=== PATIENT | male | born 1935 | race Caucasian/White ===

== ENCOUNTER 2019-01-30 16:10 | Emergency (ER) | payer MEDICARE, OTHER ==
[2019-01-30] MEDS ORDERED: Ketamine 50 MG/ML (10ML VIAL) ONE (16:29)
[2019-01-30] MEDS ORDERED: PROPOFOL 20 ML ONE (16:37)
--- NOTE | 2019-01-30 16:54 | RAD ---
2 views left hip: 01/30/2019 COMPARISON: None HISTORY: Fall, trauma, pain FINDINGS: There is a total hip arthroplasty present on the left. The femoral component is dislocated anteriorly and proximally. Post reduction imaging advised. IMPRESSION: Dislocated left hip arthroplasty.
--- NOTE | 2019-01-30 16:55 | RAD ---
Frontal radiograph pelvis: 01/30/2019 COMPARISON: None HISTORY: Injury, trauma, pain FINDINGS: There is a dislocated left hip arthroplasty present. There is no widening of the sacroiliac joints or pubic symphysis. No acute fracture noted. Multilevel lumbar spine degenerative change present. IMPRESSION: Dislocation of left hip arthroplasty.
--- NOTE | 2019-01-30 17:19 | RAD ---
2 views left hip: 01/30/2019 HISTORY: Evaluate reduction FINDINGS: Previously noted dislocation of left hip arthroplasty has been reduced. No acute fracture. IMPRESSION: Interval reduction of left hip arthroplasty.
== END 2019-01-30 20:20 | disposition home or self-care (01) ==
LOC: ERS 16:10
DX: S73.005A Unspecified dislocation of left hip, initial encounter (principal); I10 Essential (primary) hypertension; X50.1XXA Overexertion from prolonged static or awkward postures, initial encounter
CPT/HCPCS: 27250; 72170; 96360; 99152; J2704

== ENCOUNTER 2020-04-01 02:11 | Inpatient (IN) | payer MEDICARE, OTHER ==
[2020-04-01 02:47] LABS: #Lymphocytes 1.4 thou/uL (1.20-3.40); #Monocytes 0.7 thou/uL (0.11-0.59); %Basophils 0.3 % (0.0-1.0); %Eosinophils 0.1 % (0.0-10.0); %Lymphocytes 15.4 % (21.0-51.0); %Monocytes 7.6 % (0.0-10.0); %Neutrophils 76.6 % (42.0-75.0); Hemoglobin 17.5 g/dL (14.0-18.0); Mean Corpuscular HGB CONC 34.2 g/dL (32.0-36.0); Mean Corpuscular Hemoglobin 33.2 pg (27.0-31.0); Mean Corpuscular Volume 97.2 fL (78.0-98.0); Mean Platelet Volume 9.5 fL (7.4-10.4); Platelet Count 116 thou/uL (130-400); RBC Distribution Width 12.6 % (11.5-14.5); Red Blood Cell (RBC) Count 5.25 mill/uL (4.70-6.10); White Blood Cell (WBC) Count 9.2 thou/uL (4.8-10.8)
[2020-04-01] MEDS ORDERED: Acetaminophen 500 MG TAB ONE (02:48)
[2020-04-01] MEDS ORDERED: cefTRIAXone\\ROCEPHIN 2 GM VIAL ONE (02:48)
[2020-04-01 03:05] LABS: ALT (SGPT) 82 U/L (8-55); AST (SGOT) 270 U/L (5-34); Alkaline Phosphatase 74 U/L (40-110); Anion Gap 20 mmol/L (10-20); BUN (Urea Nitrogen) 41 mg/dL (8.4-25.7); Bilirubin, Total 1.8 mg/dL (0.2-1.2); Calc. Creatinine Clearance 0 mL/min (70-130); Calcium 9.3 mg/dL (7.8-10.44); Carbon Dioxide 24 mmol/L (23-31); Chloride 103 mmol/L (98-107); Estimated GFR-MDRD 47; Globulin 3.7 g/dL (2.4-3.5); Glucose 190 mg/dL (83-110); Potassium 3.5 mmol/L (3.5-5.1); Protein, Total 7.7 g/dL (5.8-8.1); Sodium 143 mmol/L (136-145)
[2020-04-01] MEDS ORDERED: Azithromycin 500 MG VIAL ONE (03:05)
[2020-04-01] MEDS ORDERED: Aspirin Chewable 81 MG TAB ONE (03:22)
[2020-04-01 03:33] LABS: CKMB 15.8 ng/mL (0-6.6)
[2020-04-01] MEDS ORDERED: Acetaminophen 325 MG TAB PO PRN (03:52)
[2020-04-01] MEDS ORDERED: Diabetic Tussin DM 5 ML UDCUP PO PRN (03:52)
[2020-04-01] MEDS ORDERED: Calcium Carbonate 500 MG ChewTAB PO PRN (03:52)
[2020-04-01] MEDS ORDERED: HYDROcodone/Acetaminophen 5/325 mg Tablet PO PRN (03:52)
[2020-04-01] MEDS ORDERED: Ondansetron PF 4 MG/2 ML Vial IVP PRN (03:52)
[2020-04-01] MEDS ORDERED: Ondansetron ODT 4 MG TAB PO PRN (03:52)
[2020-04-01] MEDS ORDERED: Acetaminophen 650 MG Suppository PR PRN (03:52)
[2020-04-01] MEDS ORDERED: Dextrose 5% in Water 1,000 ML IV PRN (04:00)
[2020-04-01] MEDS ORDERED: Dextrose 50% Abboject 50 ML SYRINGE SLOW IVP PRN (04:00)
--- NOTE | 2020-04-01 04:12 | PDOC.HHP ---
Hospitalist HPI - History of Present Illness altered mental status History of Present Illness: history is limited obtained from ed records and old emr. ED physicians did talked w son over the phone and got some of his pmhx, son will bring medication list Case of an 84y/o male with pmhx of atrial fibrillation on no anticoagulation due to hx of ICH, hypertension hyperlipidemia and DM who comes to hospital brought by ems after son found him disoriented at his house. apparently patient was on his usual state of health until today when his son called him and he did not answer. he was worried and went to check on him and found him naked in a chair with altered mental state looking dehydrated and tachypnic, son is an internal medicine physician. ems was called and patient was brought to the hospital. of noted ems had called earlier today on the patient after suffering a fall. at that time pt was aox3. at the ed patient was found in sepsis secondary to covid / pneumonia and hospitalist was called for further evaluation and management Hospitalist ROS - Review of Systems ROS unobtainable: due to mental status Hospitalist History - Past Medical History Cardiac: reports: AFIB, HTN, Hyperlipidemia Endocrine: reports: Diabetes - Past Surgical History Other Surgical History: unable to asses due to altered mental status - Family History Other Family History: unable to asses due to altered mental status - Exam General Appearance: awake alert, ill appearing Eye: PERRL, anicteric sclera ENT: normocephalic atraumatic, no oropharyngeal lesions Neck: supple, symmetric, no JVD Heart: no murmur, no gallops, no rubs Heart - other findings: tachycardic Respiratory: tachypneic Respiratory - other findings: decreased breath sound b/l Gastrointestinal: soft, non-tender, non-distended, normal bowel sounds Extremities: no cyanosis, no clubbing, no edema Extremities - other findings: b/l stasis dermatitis scars Skin: normal turgor, no rashes Neurological: cranial nerve grossly intact, normal sensation to touch, no weakness, no focal deficits Musculoskeletal: normal tone, normal strength, no muscle wasting Psychiatric: normal affect, normal behavior, oriented to person Hospitalist Results - Labs Result Diagrams: 04/01/20 02:35 04/01/20 02:35 Lab results: WBC 9.2 thou/uL (4.8-10.8) 04/01/20 02:35 Hgb 17.5 g/dL (14.0-18.0) 04/01/20 02:35 Hct 51.1 % (42.0-52.0) 04/01/20 02:35 MCV 97.2 fL (78.0-98.0) 04/01/20 02:35 Plt Count 116 thou/uL (130-400) L 04/01/20 02:35 Neutrophils % 76.6 % (42.0-75.0) H 04/01/20 02:35 Sodium 143 mmol/L (136-145) 04/01/20 02:35 Potassium 3.5 mmol/L (3.5-5.1) 04/01/20 02:35 Chloride 103 mmol/L (98-107) 04/01/20 02:35 Carbon Dioxide 24 mmol/L (23-31) 04/01/20 02:35 BUN 41 mg/dL (8.4-25.7) H 04/01/20 02:35 Creatinine 1.42 mg/dL (0.7-1.3) H 04/01/20 02:35 Glucose 190 mg/dL (83-110) H 04/01/20 02:35 Lactic Acid 3.2 mmol/L (0.5-2.2) H 04/01/20 02:35 Calcium 9.3 mg/dL (7.8-10.44) 04/01/20 02:35 Total Bilirubin 1.8 mg/dL (0.2-1.2) H 04/01/20 02:35 AST 270 U/L (5-34) H 04/01/20 02:35 ALT 82 U/L (8-55) H 04/01/20 02:35 Alkaline Phosphatase 74 U/L (40-110) 04/01/20 02:35 CK-MB (CK-2) 15.8 ng/mL (0-6.6) H* 04/01/20 02:35 Troponin I 0.345 ng/mL (< 0.028) H* 04/01/20 02:35 B-Natriuretic Peptide 152.6 pg/mL (0-100) H 04/01/20 02:35 Serum Total Protein 7.7 g/dL (5.8-8.1) 04/01/20 02:35 Albumin 4.0 g/dL (3.4-4.8) 04/01/20 02:35 - Radiology Interpretation Chest x-ray Additional Comment: b/l [place] Hospitalist H&P A/P - Problem (1) Severe sepsis Code(s): A41.9 - SEPSIS, UNSPECIFIED ORGANISM; R65.20 - SEVERE SEPSIS WITHOUT SEPTIC SHOCK Status: Acute (2) Pneumonia Code(s): J18.9 - PNEUMONIA, UNSPECIFIED ORGANISM Status: Acute (3) COVID-19 Code(s): U07.1 - COVID-19 Status: Acute (4) Diabetes Code(s): E11.9 - TYPE 2 DIABETES MELLITUS WITHOUT COMPLICATIONS Status: Acute (5) HTN (hypertension) Code(s): I10 - ESSENTIAL (PRIMARY) HYPERTENSION Status: Acute (6) Atrial fibrillation Code(s): I48.91 - UNSPECIFIED ATRIAL FIBRILLATION Status: Acute (7) Elevated troponin Code(s): R79.89 - OTHER SPECIFIED ABNORMAL FINDINGS OF BLOOD CHEMISTRY Status : Acute - Plan Plan: severe sepsis pneumonia / covid 19 - fever tachycardia with elevated LA with cxr with b/l pneumonia positive covid test, renal failure and elevated troponins - sepsis bundles started at the ED - f/u LA - cefe and vanc - dexamethasone 6mg iv daily - 02 supplementation - f/u blood cultures jamir - likely pre renal - on ivfs - f/u u/o and bmps htn - holding medication in setting of sepsis dm - ss and accu checks, adjust as necessary afib - chronic not in rvr - no AC due to hx of ICH
[2020-04-01] MEDS ORDERED: Cefepime 2 GM in Sodium Chloride 0.9% 100 ML IVPB SCH ×2 (04:15→06:00)
[2020-04-01 05:07] LABS: Bacteria/HPF None Seen HPF (None Seen); Bilirubin Negative (Negative); Blood, Urine 3+ (Negative); Clarity Turbid (Clear); Glucose, Urine (Dipstick) Normal (Negative); Ketone, Urine 10 mg/dL (Negative); Leukocyte Negative Leu/uL (Negative); Nitrite Negative (Negative); Protein, Urine (Dipstick) 300 mg/dL (Neg-Trace); Specific Gravity, Urine 1.043 (1.002-1.036); WBC/HPF 21-50 HPF (0-3)
[2020-04-01 05:48] LABS: Lactic Acid 1.6 mmol/L (0.5-2.2)
[2020-04-01 06:05] VITALS: BMI 27.3
[2020-04-01 06:07] LABS: Troponin I 0.394 ng/mL (< 0.028)
[2020-04-01] MEDS: Sodium Chloride 0.9% 1,000 ML IV SCH ×2 (06:29→12:56)
[2020-04-01] MEDS ORDERED: Prevnar 13-Val Conj/PF 0.5 ML SYRINGE IM ONE (08:00)
[2020-04-01] MEDS ORDERED: Enoxaparin Sodium 40 MG/0.4 ML SYRINGE SC SCH (09:00)
[2020-04-01] MEDS ORDERED: Vancomycin HCl 1 GM in Sodium Chloride 0.9% 250 ML 300 ML IVPB SCH (09:00)
[2020-04-01] MEDS ORDERED: Vancomycin 1 GM in Premix Bag 1 BAG IVPB SCH (09:00)
--- NOTE | 2020-04-01 09:01 | CT ---
PRELIMINARY REPORT/DIRECT RADIOLOGY/EMERGENCY AFTER HOURS PROCEDURE: EXAM: CT Chest with Intravenous Contrast. CLINICAL HISTORY: Patient brought to the ER by EMS at the request of his son. His son tried to call h im today and could not get him to answer the phone. When he went to his house he noted that the patie nt was short of breath. Patient son is a internal medicine physician, and he listened to his lungs an d heard wheezing which was unusual. He also reported to EMS that the patient is more confused than no rmal. Patient was seen by EMS earlier this evening following a mechanical fall at which time he was o riented x4 and did not want to come to the hospital. Patient was diagnosed with COVID-19 earlier this week. Patient complains only of low back pain which is chronic. He denies shortness of breath, howev er he seems bit confused. He says he fell a week ago, not today. TECHNIQUE: Axial computed tomography images of the chest with intravenous contrast. CONTRAST: With; ISOVUE 370,100mL COMPARISON: None provided. FINDINGS: LUNGS: Multifocal infiltrates predominantly bilateral lower lobes and right upper lobe is present con sistent with history of Covid 19. PLEURAL SPACES: Small bilateral pleural effusions. HEART AND MEDIASTINUM: Cardiomegaly. LYMPH NODES: No lymphadenopathy. BONES: Chronic appearing left proximal humeral fracture. Chronic left posterior 10th and 11th rib fra ctures. Acute appearing left anterior sixth rib fracture. CHEST WALL AND UPPER ABDOMEN: The upper abdominal solid organs are unremarkable. The chest wall is un remarkable. IMPRESSION: Multifocal infiltrates consistent with history of Covid 19. Small bilateral pleural effus ions. Acute nondisplaced left anterior sixth rib fracture. Cardiomegaly. ELECTRONICALLY SIGNED BY: Parris Page MD Apr 01, 2020 4:29:15 AM CDT FINAL REPORT EMERGENT AFTER HOURS CT CHEST WITH IV CONTRAST: IMPRESSION: Agree with the preliminary interpretation. POS: [place]
--- NOTE | 2020-04-01 09:09 | RAD ---
PORTABLE CHEST: DATE: 04/01/2020. PROVIDED CLINICAL HISTORY: Dyspnea. FINDINGS: No comparisons. The examination is rotated, limiting evaluation. The lungs are hypoinflated. Cardi ac silhouette appears enlarged with tortuosity and ectasia of the thoracic aorta. Parenchymal opacit y involving the right hemithorax is noted. No definite pleural fluid or pneumothorax apparent. IMPRESSION: Limited examination with evidence for right hemithoracic airspace disease. Please correlate with sub sequently performed CT examination report. POS: [place]
[2020-04-01] MEDS: Dexamethasone 4 mg/ml Vial SLOW IVP SCH (09:39)
--- NOTE | 2020-04-01 11:13 | PDOC.HOSPP ---
- Subjective Encounter Date: 04/01/20 Encounter Time: 10:35 Subjective: is awake and responds well to verbal questions no trouble breathing now, is on nasal canula - Objective Vital Signs & Weight: Vital Signs (12 hours) Temp Pulse Resp BP Pulse Ox 04/01/20 09:45 98.5 F 90 24 H 146/82 H 94 L 04/01/20 05:55 98 F 94 23 H 139/83 95 Weight Weight 218 lb 12.8 oz Result Diagrams: 04/01/20 02:35 04/01/20 02:35 Additional Labs: Accuchecks 04/01/20 06:40 POC Glucose 155 H Hospitalist ROS - Medication Medications: Active Medications Generic Name Dose Route Start Last Admin Trade Name Freq PRN Reason Stop Dose Admin Dexamethasone 6 mg 04/01/20 09:00 04/01/20 09:39 Decadron SLOW IVP 6 mg DAILY QUAN Administration Sodium Chloride 1,000 mls @ 126 mls/hr 04/01/20 04:15 04/01/20 06:29 Normal Saline 0.9% IV 1,000 mls .[id number] QUAN Administration Sodium Chloride 10 ml 04/01/20 09:00 04/01/20 09:36 Flush - Normal Saline IVF Not Given Q12HR QUAN - Exam General Appearance: awake alert Eye: anicteric sclera ENT: no oropharyngeal lesions, dry oral mucosa Neck: supple, no JVD Heart: RRR, no murmur Respiratory: no wheezes, no rales Gastrointestinal: soft, non-tender, non-distended, normal bowel sounds Extremities: no cyanosis, no edema Neurological: cranial nerve grossly intact, no focal deficits Psychiatric: normal affect, A&O x 3 Hosp A/P (1) Pneumonia due to COVID-19 virus Code(s): U07.1 - COVID-19; J12.89 - OTHER VIRAL PNEUMONIA Status: Acute (2) DM type 2 (diabetes mellitus, type 2) Status: Chronic Qualifiers: Diabetes mellitus senior living insulin use: without moth exterminator use (3) ROBBIN (acute kidney injury) Code(s): N17.9 - ACUTE KIDNEY FAILURE, UNSPECIFIED Status: Acute (4) Rhabdomyolysis Code(s): M62.82 - RHABDOMYOLYSIS Status: Suspected (5) Atrial fibrillation Code(s): I48.91 - UNSPECIFIED ATRIAL FIBRILLATION Status: Chronic Qualifiers: Atrial fibrillation type: paroxysmal Qualified Code(s): I48.0 - Paroxysmal atrial fibrillation (6) HTN (hypertension) Code(s): I10 - ESSENTIAL (PRIMARY) HYPERTENSION Status: Chronic Qualifiers: Hypertension type: essential hypertension Qualified Code(s): I10 - Essential (primary) hypertension (7) Sepsis Code(s): A41.9 - SEPSIS, UNSPECIFIED ORGANISM Status: Acute Qualifiers: Sepsis type: sepsis due to unspecified organism Sepsis acute organ dysfunction status: with acute organ dysfunction Severe sepsis shock status: without septic shock - Plan d/w son over phone and patient at bedside, both have consented for remdesivir trial son is aware of dexamethasone daily and low dose eliquis along with aspirin h/o intracranial bleed due to trauma when he was on coumadin 7 yrs back hemostable ck levels d/w , agrees with remdesivir and steroids PT eval in am continue iv fluids, may decrease it to 50mls/hr if ck levels are less than 500. d/w Pharmacy and have given telephone orders to start remdesivir
[2020-04-01] MEDS ORDERED: Non-Formulary Item 1 EACH in Sodium Chloride 0.9% 250 ML 210 ML IV SCH (11:15)
[2020-04-01] MEDS ORDERED: Sodium Chloride 0.45% 1,000 ML IV SCH (13:30)
[2020-04-01 14:33] LABS: Albumin 3.5 g/dL (3.4-4.8); Anion Gap 15 mmol/L (10-20); BUN (Urea Nitrogen) 40 mg/dL (8.4-25.7); BUN/Creatinine Ratio 30.53; Calc. Creatinine Clearance 57 mL/min (70-130); Calcium 8.7 mg/dL (7.8-10.44); Carbon Dioxide 25 mmol/L (23-31); Chloride 106 mmol/L (98-107); Estimated GFR-MDRD 52; Glucose 147 mg/dL (83-110); Phosphorus 3.6 mg/dL (2.3-4.7); Potassium 3.3 mmol/L (3.5-5.1); Sodium 143 mmol/L (136-145)
[2020-04-01] MEDS: HumaLOG 300 UNITS/3 ML VIAL SC PRN (15:48)
[2020-04-01 16:12] LABS: Hemoglobin 16.4 g/dL (14.0-18.0); Platelet Count 115 thou/uL (130-400)
[2020-04-01] MEDS ORDERED: Potassium Chloride 20 MEQ TAB PO SCH (17:30)
[2020-04-01] MEDS ORDERED: Amlodipine 5 MG TAB PO SCH (17:30)
[2020-04-01 17:36] LABS: Creatinine, Urine 115.56 mg/dL (63-166); Protein, Urine Random Quant 162 mg/dL (1-14); Sodium, Urine Less than 20 mmol/L (Not Available)
[2020-04-01 17:49] LABS: Urea Nitrogen, Random Urine Greater than 1200 mg/dl
--- NOTE | 2020-04-01 18:11 | CON ---
DATE OF CONSULTATION: 04/01/2020 SERVICE: Nephrology. REASON FOR CONSULTATION: Elevated creatinine and CPK. REQUESTING PHYSICIAN: Dr. Morales. HISTORY OF PRESENT ILLNESS: An 84-year-old male with known history of hypertension and diabetes as well as atrial fibrillation, brought in by EMS due to acute mental status change. The patient, who reportedly had a fall earlier on the day of presentation and necessitating EMS call, later was found by son to be altered, hence, EMS was called, and he was subsequently brought to the hospital. The patient also was seen either in the ER or urgent care on March 28, and had COVID test, which came out to be positive. Further evaluation with imaging showed multifocal pneumonic process suggestive of COVID pneumonia. The patient also was found to have elevated creatinine, hence, was admitted to the hospital. Of note, the patient also has had CT scan of the chest with contrast on presentation to the ER earlier today. History is grossly limited due to the patient's condition. Most of the history was obtained from review of medical records. There was no associated fever or chills. Initial vitals on presentation to the ER showed blood pressure 162/98, pulse 111, respiratory rate 26, temperature 100.4, SpO2 of 91% on room air. The patient initially was started on IV fluid normal saline at 125 mL /hour, but later was noted to be more tachypneic, hence, IV fluid was decreased. The patient admitted to cough. He denied dysuria or edema. PAST MEDICAL HISTORY: 1. Atrial fibrillation. 2. Hypertension. 3. Hyperlipidemia. 4. Diabetes mellitus. 5. Prior history of intracranial hemorrhage. PAST SURGICAL HISTORY: Left hip replacement. FAMILY HISTORY: Unable to obtain due to the patient's condition. SOCIAL HISTORY: The patient lives alone. There was no history of smoking. ALLERGIES: NO KNOWN DRUG ALLERGIES REPORTED. MEDICATIONS: Prior to hospital medications: 1. Amlodipine/benazepril 10/40 mg 1 tablet daily. 2. Finasteride 5 mg p.o. daily. 3. Metformin 500 mg p.o. daily. 4. Terazosin 10 mg p.o. daily. REVIEW OF SYSTEMS: Could not be performed due to the patient's condition. PHYSICAL EXAMINATION: VITAL SIGNS: Temperature 99.0, pulse 99, respiratory rate 28, SpO2 of 94% on 3 L nasal cannula, blood pressure is 148/86. GENERAL: Elderly male, in no obvious distress. Afebrile. Anicteric. Acyanotic. HEENT: Normocephalic and atraumatic. Oral mucosa is moist. NECK: Supple with no JVD. CARDIOVASCULAR: Regular rhythm and rate. RESPIRATORY: Fair air entry bilaterally with scattered crackles. No obvious rhonchi were appreciated. The patient is tachypneic. GI: Full, soft, nontender, and nondistended with normal bowel sounds. EXTREMITIES: All extremities are grossly normal looking with no obvious edema or erythema. Distal bilateral legs hyperpigmentation noted. Left foot fourth toe amputation noted. 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 Oriented to person and place. Memory lapses are noted. Moves all extremities, but weakly. Cranial nerves 2 through 12 are grossly intact. DIAGNOSTIC DATA: CBC on presentation showed WBC 9.2, hemoglobin 17.5, MCV 97.2, platelet 116. CMP on presentation showed sodium 143, potassium 3.5, chloride 103, CO2 of 24, BUN 41, creatinine 1.42, glucose 190, total bilirubin 1.8, AST 270, ALT 82, alkaline phosphatase 74, total protein 7.7, albumin 4.0. Initial cardiac markers showed CK-MB 15.8, troponin 0.34, and BNP 152.6. Initial lactic acid was 3.2, subsequently 1.6. Repeat BMP earlier this morning showed sodium 143, potassium 3.3, chloride 106, CO2 of 25, BUN 40, creatinine 1.31, glucose 147, calcium 8.7, and phosphorus 3.6. CK done earlier this morning was 5032. Urinalysis performed on presentation showed yellow turbid urine with pH of 6.0, specific gravity of 1.043, urine protein 300 mg/dL, glucose normal, ketone 4, blood 3+. Negative nitrite, bilirubin, and leukocyte esterase. Microscopy showed 4 to 6 rbc and 21 to 50 wbc with no bacteria seen. Chest x-ray showed hyperinflated lungs with parenchymal opacity involving the right hemithorax. No definite pleural effusion was noted. CT scan of the chest with contrast showed multifocal lung infiltrates, predominantly bilateral lower lobes and right upper lobe. Small bilateral pleural effusion as well as chronic left proximal humeral fracture, chronic left posterior tenth and eleventh ribs as well as acute-appearing left anterior sixth rib fracture. ASSESSMENT: 1. Acute kidney injury: Most likely due to hemodynamic factors related to sepsis and volume depletion. Contribution from rhabdomyolysis cannot be ruled out. The patient also received contrast study, which so far is not playing any role. He is, however, at increased risk of contrast-induced nephropathy. There is marginal interval improvement in level of creatinine. 2. Acute rhabdomyolysis: Due to dehydration and trauma. The patient had a fall earlier on. 3. Acute transaminitis: Due to dehydration and possibly to COVID infection. 4. Hypokalemia: Most likely due to poor oral intake. 5. Sepsis. 6. Multifocal pneumonia: Due to COVID pneumonia with possible bacterial secondary infection. 7. COVID infection. 8. Acute encephalopathy: Multifactorial from COVID infection as well as dehydration. PLAN: 1. We will transition to lactated Ringer fluid therapy. 2. We will replete serum potassium and get serum magnesium in view of history of atrial fibrillation, which most likely is paroxysmal. 3. We will also get urine electrolytes. 4. We will monitor renal and liver function tests. 5. Proteinuria: We will get urine protein-creatinine ratio for quantification of proteinuria. 6. Treatment of COVID infection and pneumonia as per primary attending. 7. We will monitor closely to avoid fluid overload. 8. We will recheck and follow CPK levels. 9. Further treatment to follow depending on hospital course. Many thanks for involving us in the care of this patient. We will follow along with you. Job ID: [id number]
[2020-04-01] MEDS: Lactated Ringer's 1,000 ML IV SCH (18:20)
[2020-04-01] MEDS: Apixaban 2.5 MG TAB PO SCH (21:51)
[2020-04-01] MEDS: Cefepime 1 GM in Sodium Chloride 0.9% 100 ML IVPB SCH (21:52)
[2020-04-02] MEDS: Lactated Ringer's 1,000 ML IV SCH ×2 (04:43→10:53)
[2020-04-02 05:32] LABS: ALT (SGPT) 81 U/L (8-55); AST (SGOT) 224 U/L (5-34); Albumin 3.1 g/dL (3.4-4.8); Alkaline Phosphatase 64 U/L (40-110); Anion Gap 17 mmol/L (10-20); BUN (Urea Nitrogen) 28 mg/dL (8.4-25.7); CK (CPK) 3056 U/L (30-200); Calc. Creatinine Clearance 79 mL/min (70-130); Calcium 8.5 mg/dL (7.8-10.44); Carbon Dioxide 20 mmol/L (23-31); Chloride 107 mmol/L (98-107); Estimated GFR-MDRD 76; Globulin 3.7 g/dL (2.4-3.5); Glucose 136 mg/dL (83-110); Magnesium 1.9 mg/dL (1.6-2.6); Potassium 4.1 mmol/L (3.5-5.1); Protein, Total 6.8 g/dL (5.8-8.1); Sodium 140 mmol/L (136-145)
[2020-04-02] MEDS ORDERED: Amlodipine 5 MG TAB PO SCH (09:00)
[2020-04-02] MEDS: Cefepime 1 GM in Sodium Chloride 0.9% 100 ML IVPB SCH ×2 (09:11→20:26)
[2020-04-02] MEDS: Aspirin Chewable 81 MG TAB PO SCH (09:13)
[2020-04-02] MEDS: Dexamethasone 4 mg/ml Vial SLOW IVP SCH (09:13)
[2020-04-02] MEDS: Apixaban 2.5 MG TAB PO SCH ×2 (09:51→20:26)
--- NOTE | 2020-04-02 11:21 | PRG ---
DATE OF SERVICE: 04/02/2020 SUBJECTIVE: An 84-year-old man seen in followup for acute kidney injury and hypokalemia. The patient was admitted after he was found to have acute mental status and also noted to have acute respiratory failure from multifocal pneumonia and COVID infection. No new problem. Still requiring oxygen supplementation. OBJECTIVE: VITAL SIGNS: Temperature 98.6, pulse 96, respiratory rate 25, SpO2 of 91 on 3.5 L nasal cannula, blood pressure is 168/88. I and O in the last 24 hours showed total intake of 1949 with total output of 400. GENERAL: An elderly male, in no obvious distress. Afebrile. Anicteric. Acyanotic. HEENT: Normocephalic and atraumatic. Oral mucosa is moist. CARDIOVASCULAR: Regular rhythm and rate. Normal heart sounds 1 and 2. RESPIRATORY: Fair air entry bilaterally with scattered crackles and some transmitted breath sounds. The patient is tachypneic. There is no obvious respiratory distress. GI: Full, soft, nontender, nondistended with normal bowel sounds. EXTREMITIES: Grossly normal looking, atraumatic, with no obvious edema. 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 Oriented to person at least. Cranial nerves 2 through 12 are grossly intact. Moves all extremities. DIAGNOSTIC DATA: Chemistry today showed sodium 140, potassium 4.1, chloride 107, CO2 of 20, BUN 28, creatinine 0.98, glucose 136, calcium 8.5, total bilirubin 1.0, AST 224, ALT 81, alkaline phosphatase 64, total protein 6.8, albumin 3.1. CK is 3056. ASSESSMENT: 1. Acute kidney injury, due to hemodynamic factors related to volume depletion and use of an NIKIA inhibitor. Contribution from rhabdomyolysis is questionable. Creatinine is down to 0.98 from 1.4 on admission with IV fluid therapy. 2. Hypokalemia, repleted. 3. Metabolic acidosis, due to sepsis and acute kidney injury. 4. Rhabdomyolysis, related to fall and dehydration. CPK is trending down above 5000 on admission to 3000 today. 5. Acute respiratory failure with hypoxia due to multifocal pneumonia. 6. Multifocal pneumonia, most likely due to COVID infection. Secondary bacterial infection cannot be ruled out. 7. Presumed COVID pneumonia. 8. Abnormal liver enzymes, most likely due to rhabdomyolysis and dehydration. Contribution from COVID infection cannot be ruled out. 9. Acute encephalopathy, due to sepsis and COVID infection. PLAN: 1. We will continue IV fluid therapy. We will, however, decrease the rate to avoid fluid overload. 2. We will start amlodipine to get adequate blood pressure control. We will increase amlodipine dose if needed to get adequate BP control. 3. Antimicrobial as per primary attending. Job ID: [id number]
[2020-04-02] MEDS: HumaLOG 300 UNITS/3 ML VIAL SC PRN ×2 (12:14→17:52)
--- NOTE | 2020-04-02 13:16 | PDOC.HOSPP ---
- Subjective Encounter Date: 04/02/20 Encounter Time: 12:00 Subjective: no sob, responds well to verbal stimuli ate his breakfast, has mild aching in his body but nothing severe is moving all extremities no chest pain or palp - Objective Vital Signs & Weight: Vital Signs (12 hours) Temp Pulse Resp BP Pulse Ox 04/02/20 09:13 96 04/02/20 07:00 103 H 22 H 168/88 H 93 L 04/02/20 03:00 98.6 F 96 24 H 168/88 H 91 L Weight Weight 218 lb 12.8 oz I&O: 04/01/20 04/02/20 04/03/20 06:59 06:59 06:59 Intake Total 1949 Output Total 400 Balance 1549 Result Diagrams: 04/01/20 15:47 04/02/20 04:28 Additional Labs: Accuchecks 04/02/20 04/01/20 04/01/20 12:18 22:02 18:33 POC Glucose 165 H 152 H 162 H Hospitalist ROS - Medication Medications: Active Medications Generic Name Dose Route Start Last Admin Trade Name Freq PRN Reason Stop Dose Admin Amlodipine Besylate 5 mg 04/02/20 09:00 04/02/20 09:13 Norvasc PO 5 mg DAILY QUAN Administration Apixaban 2.5 mg 04/01/20 21:00 04/01/20 21:51 Eliquis PO 2.5 mg BID QUAN Administration Aspirin 81 mg 04/02/20 09:00 04/02/20 09:13 Aspirin Chewable PO 81 mg DAILY QUAN Administration Dexamethasone 6 mg 04/01/20 09:00 04/02/20 09:13 Decadron SLOW IVP 6 mg DAILY QUAN Administration Cefepime HCl 1 gm/ Sodium 100 mls @ 200 mls/hr 04/01/20 21:00 04/02/20 09:11 Chloride IVPB 100 mls Q12HR QUAN Administration Insulin Human Lispro 0 units 04/01/20 04:00 04/02/20 12:14 Humalog SC 2 unit .MILD SLIDING SCALE PRN Administration Mild Correctional Scale Sodium Chloride 10 ml 04/01/20 09:00 04/02/20 09:15 Flush - Normal Saline IVF Not Given Q12HR QUAN - Exam General Appearance: awake alert Eye: PERRL, anicteric sclera ENT: no oropharyngeal lesions, moist mucosa Neck: supple, no JVD Heart: RRR, no murmur Respiratory: no wheezes, no rales, rhonchi Gastrointestinal: soft, non-tender, non-distended, normal bowel sounds Extremities: no cyanosis, no edema Neurological: cranial nerve grossly intact, no focal deficits Psychiatric: A&O x 3 Hosp A/P (1) Pneumonia due to COVID-19 virus Code(s): U07.1 - COVID-19; J12.89 - OTHER VIRAL PNEUMONIA Status: Acute (2) DM type 2 (diabetes mellitus, type 2) Status: Chronic Qualifiers: Diabetes mellitus residential insulin use: without residential use (3) ROBBIN (acute kidney injury) Code(s): N17.9 - ACUTE KIDNEY FAILURE, UNSPECIFIED Status: Acute (4) Rhabdomyolysis Code(s): M62.82 - RHABDOMYOLYSIS Status: Acute Qualifiers: Rhabdomyolysis type: non-traumatic Qualified Code(s): M62.82 - Rhabdomyolysis (5) Atrial fibrillation Code(s): I48.91 - UNSPECIFIED ATRIAL FIBRILLATION Status: Chronic Qualifiers: Atrial fibrillation type: paroxysmal Qualified Code(s): I48.0 - Paroxysmal atrial fibrillation (6) HTN (hypertension) Code(s): I10 - ESSENTIAL (PRIMARY) HYPERTENSION Status: Chronic Qualifiers: Hypertension type: essential hypertension Qualified Code(s): I10 - Essential (primary) hypertension (7) Sepsis Code(s): A41.9 - SEPSIS, UNSPECIFIED ORGANISM Status: Acute Qualifiers: Sepsis type: sepsis due to unspecified organism Sepsis acute organ dysfunction status: with acute organ dysfunction Severe sepsis shock status: without septic shock - Plan d/w son over phone and patient at bedside, both have consented for remdesivir trial (04/01/2020) son is aware of dexamethasone daily and low dose eliquis along with aspirin h/o intracranial bleed due to trauma and not spontaneous when he was on coumadin 7 yrs back hemostable ck levels are trending down to 3000 from 5000 d/w , agrees with remdesivir and steroids PT eval continue iv fluids, may decrease it to 50mls/hr. He is not a candidate for remdesivir due to elevated AST per pharmacy AST is elevated sec to rhabdomyolysis and is slowly trending down cant reach son today to give updates (tried x3) Prognosis guarded in view of multiple active issues including needing for hydration for rhabdo. He may not get echo due to his covid +ve status? to assess for valvular structures in view of needing iv fluids
[2020-04-02] MEDS ORDERED: Non-Formulary Item 1 EACH in Sodium Chloride 0.9% 250 ML 230 ML IV SCH (14:00)
[2020-04-02 15:51] LABS: #Basophils 0.2 thou/uL (0.0-0.2); #Lymphocytes 0.7 thou/uL (1.20-3.40); #Monocytes 0.6 thou/uL (0.11-0.59); #Neutrophils 8.5 thou/uL (1.40-6.50); %Basophils 1.7 % (0.0-1.0); %Eosinophils 0.2 % (0.0-10.0); %Lymphocytes 6.9 % (21.0-51.0); %Monocytes 5.8 % (0.0-10.0); %Neutrophils 85.4 % (42.0-75.0); Hemoglobin 15.3 g/dL (14.0-18.0); Mean Corpuscular HGB CONC 34.6 g/dL (32.0-36.0); Mean Corpuscular Hemoglobin 33.7 pg (27.0-31.0); Mean Corpuscular Volume 97.3 fL (78.0-98.0); Mean Platelet Volume 9.2 fL (7.4-10.4); Platelet Count 118 thou/uL (130-400); RBC Distribution Width 12.5 % (11.5-14.5); Red Blood Cell (RBC) Count 4.54 mill/uL (4.70-6.10)
[2020-04-02] MEDS ORDERED: Melatonin 3 MG TAB PO PRN (22:13)
--- NOTE | 2020-04-02 23:39 | CON ---
DATE OF CONSULTATION: 04/02/2020 REASON FOR CONSULTATION: COVID infection. HISTORY OF PRESENT ILLNESS: An 84-year-old with history of type 2 diabetes, hypertension, and atrial fibrillation, who had been tested COVID positive about Friday this past week and he was found tachypneic at home by son, who was an supervisor coffee. He had wheezing in the exam and EMS brought him to the hospital. Initial findings; BP 160/90, pulse 111, breathing rate 26, and O2 saturations 91 on room air. He was brought in and other findings included white cell count 9.2, hemoglobin 17, platelets 116, and 76% neutrophils. Sodium 143 and creatinine 1.42, which has improved now to 0.94. Troponin was 0.345, CK is 15.8, and BNP was 152. Urinalysis with 21 to 50 wbc's. Microbiology thus far negative blood cultures. Mr. Lara is awake. He thought he was in [place], but realized he was in [place] instead. He knew the date. He is able to answer questions with proper replies. Denied headaches. Still moderate dyspnea. No chest pain. Coughing intermittently. No abdominal pain or diarrhea. No genitourinary symptoms. PAST MEDICAL HISTORY: Type 2 diabetes, hypertension, and atrial fibrillation. PAST SURGICAL HISTORY: Left hip replacement. SOCIAL HISTORY: Retired. No smoking. ALLERGIES: NONE. FAMILY HISTORY: Noncontributory. CURRENT MEDICATIONS: 1. Tylenol. 2. [place]. 3. Norvasc. 4. Eliquis. 5. Aspirin. 6. Cefepime. 7. Decadron. 8. Insulin. 9. Remdesivir has been started. 10. Zofran. PHYSICAL EXAMINATION: VITAL SIGNS: Temperature normal, BP 150/79, pulse 97, respirations 24, and O2 saturation 92. SKIN: Little area of abrasion in the lateral thighs probably from a fall. Presacral erythema. Areas of stasis dermatitis with lipodermatosclerosis in lower extremities and some nonpalpable purpura. No lymphadenopathy. Peripheral IV access. He is voiding in the urinal. HEENT: Ocular movements conjugate. Oral cavity was not particularly remarkable. NECK: No jugular vein distention. LUNGS: With symmetric air entry. No obvious crackles or wheezing. HEART: S1 and S2. Regular rate. ABDOMEN: Soft, not distended or tender. No ascites. No bladder distention. EXTREMITIES: No joint inflammatory activity. Pulses are 1+ in dorsalis pedis. He has onychodystrophy in all toenails versus tinea pedis. Plantar responses are flexor. NEUROLOGIC: He is awake, knows his name and thought he was in [place], but recognized when I told him he was in [place]. He knew the date. LABORATORY DATA: Followup labs, hemoglobin 16.4 and platelets 115,000. Lactic acid 1.6. The AST was elevated at 270 down to 224, ALT was 82 and 81, and alkaline phosphatase 74. The CK was elevated at 5000 on admission, now 3000. CT of chest with multifocal infiltrates, small pleural effusions. ASSESSMENT AND PLAN: Atrial fibrillation on Eliquis, type 2 diabetes, hypertension, rhabdomyolysis, COVID infection, and requirement for O2 administration. The patient has been started on Remdesivir today. Evidently, the transaminase elevation is due to muscle enzyme leakage rather than liver involvement and he is probably around the 9th or 10th day of illness at this point in time. Continue monitoring D-dimer, ferritin, and CRP every other day. The usual laboratory monitoring for Remdesivir administration and continue Eliquis. Job ID: [id number]
[2020-04-03 04:54] LABS: #Basophils 0.1 thou/uL (0.0-0.2); #Monocytes 0.7 thou/uL (0.11-0.59); #Neutrophils 7.7 thou/uL (1.40-6.50); %Basophils 0.5 % (0.0-1.0); %Eosinophils 0.3 % (0.0-10.0); %Monocytes 6.9 % (0.0-10.0); %Neutrophils 81.2 % (42.0-75.0); Hemoglobin 14.9 g/dL (14.0-18.0); Mean Corpuscular HGB CONC 32.9 g/dL (32.0-36.0); Mean Corpuscular Volume 97.2 fL (78.0-98.0); Mean Platelet Volume 9.2 fL (7.4-10.4); Platelet Count 132 thou/uL (130-400); RBC Distribution Width 12.6 % (11.5-14.5); Red Blood Cell (RBC) Count 4.66 mill/uL (4.70-6.10); White Blood Cell (WBC) Count 9.5 thou/uL (4.8-10.8)
[2020-04-03 05:17] LABS: ALT (SGPT) 87 U/L (8-55); AST (SGOT) 197 U/L (5-34); Albumin 3.1 g/dL (3.4-4.8); Alkaline Phosphatase 64 U/L (40-110); Anion Gap 13 mmol/L (10-20); BUN (Urea Nitrogen) 24 mg/dL (8.4-25.7); Bilirubin, Total 1.2 mg/dL (0.2-1.2); CK (CPK) 1822 U/L (30-200); Calc. Creatinine Clearance 84 mL/min (70-130); Calcium 8.4 mg/dL (7.8-10.44); Carbon Dioxide 26 mmol/L (23-31); Chloride 103 mmol/L (98-107); Estimated GFR-MDRD 81; Globulin 3.2 g/dL (2.4-3.5); Glucose 145 mg/dL (83-110); Potassium 3.5 mmol/L (3.5-5.1); Protein, Total 6.3 g/dL (5.8-8.1); Sodium 138 mmol/L (136-145)
[2020-04-03 05:19] LABS: ALT (SGPT) 90 U/L (8-55); AST (SGOT) 200 U/L (5-34); Albumin 3.2 g/dL (3.4-4.8); Alkaline Phosphatase 64 U/L (40-110); Bilirubin, Direct 0.7 mg/dL (0.1-0.3); Bilirubin, Total 1.2 mg/dL (0.2-1.2); Protein, Total 6.4 g/dL (5.8-8.1)
[2020-04-03] MEDS: Lactated Ringer's 1,000 ML IV SCH (07:27)
[2020-04-03] MEDS: Amlodipine 5 MG TAB PO SCH (07:48)
[2020-04-03] MEDS: Apixaban 2.5 MG TAB PO SCH ×2 (07:48→21:29)
[2020-04-03] MEDS: Aspirin Chewable 81 MG TAB PO SCH (07:48)
[2020-04-03] MEDS: Cefepime 1 GM in Sodium Chloride 0.9% 100 ML IVPB SCH ×2 (07:49→21:29)
[2020-04-03] MEDS: Dexamethasone 4 mg/ml Vial SLOW IVP SCH (07:50)
[2020-04-03] MEDS ORDERED: Non-Formulary Item 1 EACH in Sodium Chloride 0.9% 250 ML 210 ML IV SCH (08:00)
[2020-04-03] MEDS ORDERED: Furosemide 40 MG/4 ML VIAL ONE (08:21)
[2020-04-03] MEDS ORDERED: Furosemide 40 MG/4 ML VIAL SLOW IVP SCH (08:45)
[2020-04-03 09:14] LABS: Actual Bicarbonate (HCO3a) 20.6 mEq/L (22-28); Base Excess (BEa) -1.5 mEq/L (-2.0 to +3.0); CO2 Tension 28.5 mmHg (35.0-45.0); Calcium, Ionized (arterial) 1.11 mmol/L (1.12-1.30); Carboxyhemoglobin (COHb) 0.1 gm% (0.0-3.0); Hemoglobin (Hb) 16.1 g/dL (14.0-18.0); Potassium - ABG Lab 3.59 mmol/L (3.70-5.30); pH, Arterial 7.48 (7.35-7.45)
[2020-04-03 09:41] LABS: ALV-art Gradient 424.605 (0-20); Puncture Site LRA
--- NOTE | 2020-04-03 10:11 | PRG ---
DATE OF SERVICE: 04/03/2020 SERVICE: Nephrology. SUBJECTIVE: An 84-year-old male with COVID pneumonia, seen in followup for acute renal failure and rhabdomyolysis. The patient developed worsening shortness of breath today. OBJECTIVE: VITAL SIGNS: Temperature 99.6, pulse 103, respiratory rate 14, SpO2 is 89 on 45% high-flow nasal cannula, blood pressure is 171/90. I's and O's in the last 24 hours showed total intake of 3039 with urine output of 200: This is grossly inconclusive as most of the urine was not measured and the patient also has diaper. GENERAL: Elderly male, in respiratory distress. HEENT: Normocephalic and atraumatic. NECK: Supple with no JVD. CARDIOVASCULAR: Tachycardic with normal heart sounds. RESPIRATORY: Fair air entry with scattered crackles. Respiratory distress noted. GI: Full, soft, nontender, nondistended with normal bowel sounds. EXTREMITIES: Trace to mild edema of the extremities noted. MANUFACTURING JOB TITLES: Conscious and awake. Oriented to person at least. DIAGNOSTIC DATA: CBC showed WBC count of 9.5, hemoglobin of 14.9, platelet of 132. CMP showed sodium 138, potassium 3.5, chloride 103, CO2 of 26, BUN 24, creatinine 0.89, glucose 145, calcium 8.4, total bilirubin 1.2, AST 197, ALT 87, alkaline phosphatase 64, total protein 6.3, albumin 3.1. CK is down to 1832 from above 5000. ASSESSMENT: 1. Acute kidney injury: Resolved. 2. Dehydration: Improved greatly. 3. Rhabdomyolysis: Improving with CK trending downwards. 4. Abnormal liver enzymes: Most likely related to rhabdomyolysis. 5. Acute respiratory failure with hypoxia due to COVID infection and pneumonia. 6. COVID infection/pneumonia. PLAN: 1. We will discontinue IV fluid. Agree with dose of Lasix. We will give additional Lasix later in the day. Recommend Lasix p.r.n. as needed for edema or shortness of breath. Also recommend repeat chest x-ray. 2. Further treatment as per primary attending. Nephrology will sign off at this time due to resolution of acute kidney injury. Job ID: [id number]
--- NOTE | 2020-04-03 12:01 | RAD ---
EXAM: CHEST ONE VIEW HISTORY: Covid pneumonia COMPARISON: 04/01/2020 FINDINGS: Cardiac silhouette remains enlarged. There is increased interstitial opacities within the right lung with interstitial and patchy parenchymal opacity seen at each lung base. Severe left glenohumeral osteoarthropathy is present IMPRESSION: Airspace opacities bilaterally suggesting infectious process. These findings can be seen with viral p neumonitis such as Covid 19.
--- NOTE | 2020-04-03 12:36 | PDOC.HOSPP ---
- Subjective Encounter Date: 04/03/20 Encounter Time: 12:00 Subjective: became tachypneic this am needing high flow got slightly better after one dose iv lasix ate half of his breakfast - Objective Vital Signs & Weight: Vital Signs (12 hours) Temp Pulse Resp BP Pulse Ox 04/03/20 09:30 92 L 04/03/20 07:45 99.6 F 103 H 40 H 171/90 H 89 L 04/03/20 05:43 98.7 F 102 H 28 H 153/80 H 90 L 04/03/20 01:50 98.5 F 105 H 28 H 163/93 H 89 L Weight Weight 218 lb 12.8 oz I&O: 04/02/20 04/03/20 04/04/20 06:59 06:59 06:59 Intake Total 1949 3039 Output Total 400 200 Balance 1549 2839 Result Diagrams: 04/03/20 04:26 04/03/20 04:26 Additional Labs: Accuchecks 04/02/20 04/02/20 04/02/20 20:56 17:43 12:18 POC Glucose 188 H 161 H 165 H Hospitalist ROS - Medication Medications: Active Medications Generic Name Dose Route Start Last Admin Trade Name Freq PRN Reason Stop Dose Admin Amlodipine Besylate 10 mg 04/03/20 09:00 04/03/20 07:48 Norvasc PO 10 mg DAILY QUAN Administration Apixaban 2.5 mg 04/01/20 21:00 04/03/20 07:48 Eliquis PO 2.5 mg BID QUAN Administration Aspirin 81 mg 04/02/20 09:00 04/03/20 07:48 Aspirin Chewable PO 81 mg DAILY QUAN Administration Dexamethasone 6 mg 04/01/20 09:00 04/03/20 07:50 Decadron SLOW IVP 6 mg DAILY QUAN Administration Cefepime HCl 1 gm/ Sodium 100 mls @ 200 mls/hr 04/01/20 21:00 04/03/20 07:49 Chloride IVPB 100 mls Q12HR QUAN Administration Insulin Human Lispro 0 units 04/01/20 04:00 04/02/20 17:52 Humalog SC 2 unit .MILD SLIDING SCALE PRN Administration Mild Correctional Scale Melatonin 6 mg 04/02/20 22:13 04/02/20 22:29 Melatonin PO 6 mg HSPRN PRN Administration Insomnia Sodium Chloride 10 ml 04/01/20 09:00 04/03/20 07:50 Flush - Normal Saline IVF 10 ml Q12HR QUAN Administration - Exam General Appearance: awake alert, ill appearing Eye: PERRL, anicteric sclera ENT: no oropharyngeal lesions, dry oral mucosa Neck: supple, no JVD Heart: RRR, no murmur Respiratory: no wheezes, rales, rhonchi Gastrointestinal: soft, non-tender, non-distended, normal bowel sounds, no guarding, no rigidity Extremities: no cyanosis, no edema Neurological: cranial nerve grossly intact, no focal deficits Hosp A/P (1) Acute respiratory failure with hypoxia Code(s): J96.01 - ACUTE RESPIRATORY FAILURE WITH HYPOXIA Status: Acute (2) Pneumonia due to COVID-19 virus Code(s): U07.1 - COVID-19; J12.89 - OTHER VIRAL PNEUMONIA Status: Acute (3) DM type 2 (diabetes mellitus, type 2) Status: Chronic Qualifiers: Diabetes mellitus longterm insulin use: without longterm use (4) ROBBIN (acute kidney injury) Code(s): N17.9 - ACUTE KIDNEY FAILURE, UNSPECIFIED Status: Acute (5) Rhabdomyolysis Code(s): M62.82 - RHABDOMYOLYSIS Status: Acute Qualifiers: Rhabdomyolysis type: non-traumatic Qualified Code(s): M62.82 - Rhabdomyolysis (6) Atrial fibrillation Code(s): I48.91 - UNSPECIFIED ATRIAL FIBRILLATION Status: Chronic Qualifiers: Atrial fibrillation type: paroxysmal Qualified Code(s): I48.0 - Paroxysmal atrial fibrillation (7) HTN (hypertension) Code(s): I10 - ESSENTIAL (PRIMARY) HYPERTENSION Status: Chronic Qualifiers: Hypertension type: essential hypertension Qualified Code(s): I10 - Essential (primary) hypertension (8) Sepsis Code(s): A41.9 - SEPSIS, UNSPECIFIED ORGANISM Status: Acute Qualifiers: Sepsis type: sepsis due to unspecified organism Sepsis acute organ dysfunction status: with acute organ dysfunction Severe sepsis shock status: without septic shock - Plan d/w son over phone and patient at bedside, both have consented for remdesivir trial (04/01/2020) son is aware of dexamethasone daily and low dose eliquis along with aspirin I am unable to reach son after 04/01 despite multiple attempts 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 AST is elevated sec to rhabdomyolysis and is slowly trending down Prognosis guarded He is transfered to [facility] on high flow oxygen, will try to reach family/CM to help with tracing family members D/w , he will get convalescent plasma today
--- NOTE | 2020-04-03 12:54 | CON ---
DATE OF CONSULTATION: 04/03/2020 TIME SPENT: This is 45 minutes of critical care time. REASON FOR CONSULTATION: COVID-19 pneumonia. HISTORY OF PRESENT ILLNESS: The patient is an 84-year-old male, who lives in an assisted living facility. He was found down at home a couple of days ago and was brought to the hospital with rhabdomyolysis. Over the course of the last 24 hours, he has had a progressive decline in his O2 saturations and has been transferred to the [facility] for the purpose of placing him on high-flow nasal cannula. He has many comorbid medical problems. PAST MEDICAL HISTORY: 1. Type 2 diabetes. 2. Hypertension. 3. Atrial fibrillation. PAST SURGICAL HISTORY: Left hip replacement. SOCIAL HISTORY: Nonsmoker. Does not consume alcohol. ALLERGIES: NONE. FAMILY MEDICAL HISTORY: Unremarkable. CURRENT MEDICATIONS: 1. Norvasc. 2. Eliquis. 3. [place]. 4. Tylenol. 5. Aspirin. 6. Cefepime. 7. Decadron. 8. Insulin. 9. Remdesivir. 10. Zofran. REVIEW OF SYSTEMS: Otherwise, negative. PHYSICAL EXAMINATION: VITAL SIGNS: Temperature 99.6, pulse 103, respirations in the 30s, O2 saturation low 90s on high-flow oxygen, FiO2 of 75%, and blood pressure 171/90. GENERAL: This is an elderly gentleman, who is pleasant, but slightly tachypneic at rest. HEENT: Unremarkable. NECK: No adenopathy or JVD. LUNGS: Diffuse crackles. CARDIAC: S1 and S2. Regular. ABDOMEN: Soft and nontender. EXTREMITIES: No edema. LABORATORY DATA: CPK is 3056. AST 224, ALT 81. Sodium 140, potassium 4.1, chloride 107, CO2 of 20, BUN 28, creatinine 0.9, and glucose 136. Procalcitonin 0.08. PH of 7.48, pCO2 of 28, and pO2 of 46. White blood cell count 9.5, hematocrit 45.3, and platelet count 132. IMAGING DATA: X-ray from 2 days ago showed bilateral infiltrates, worse on the right. ASSESSMENT: 1. COVID-19 - likely with higher FiO2 requirement secondary to worsening of the COVID-19 pneumonia. 2. Underlying atrial fibrillation. 3. Advanced age. PLAN: 1. This patient's prognosis is quite poor if he is decompensated due to COVID. High-flow oxygen seems to be working for now, but I would guess that he is quickly going to worsen and we are going to have to make a decision about intubation, etc. I tried to talk to the patient about this. He basically wanted to defer to his son, who is interns. I will try to communicate with him shortly. 2. Agree with remdesivir, although we are going to have to watch his LFTs, which are increasing. 3. Agree with steroids. 4. Convalescent plasma if available. Job ID: [id number]
--- NOTE | 2020-04-03 21:49 | PDOC.EVN ---
Event Note - Event Note Event Note: Nurse called. patient getting out of bed, wants something to relax patient. VS trending stable, afebrile. Recent ABG stable, glucose WNL, recent UA performed, LFTs are elevated. Order ammonia level and dosed trazadone x 1 dose.
[2020-04-03] MEDS ORDERED: traZODone HCl 50 MG TAB PO SCH (22:00)
[2020-04-04 03:19] LABS: #Monocytes 0.6 thou/uL (0.11-0.59); #Neutrophils 9.4 thou/uL (1.40-6.50); %Basophils 0.4 % (0.0-1.0); %Eosinophils 0.2 % (0.0-10.0); %Lymphocytes 8.9 % (21.0-51.0); %Monocytes 5.5 % (0.0-10.0); %Neutrophils 85.1 % (42.0-75.0); Hemoglobin 16.6 g/dL (14.0-18.0); Mean Corpuscular HGB CONC 34.3 g/dL (32.0-36.0); Mean Corpuscular Hemoglobin 33.2 pg (27.0-31.0); Mean Corpuscular Volume 96.8 fL (78.0-98.0); Mean Platelet Volume 9.4 fL (7.4-10.4); Platelet Count 148 thou/uL (130-400); RBC Distribution Width 12.5 % (11.5-14.5)
[2020-04-04 03:38] LABS: ALT (SGPT) 89 U/L (8-55); AST (SGOT) 180 U/L (5-34); Albumin 3.1 g/dL (3.4-4.8); Alkaline Phosphatase 70 U/L (40-110); Anion Gap 15 mmol/L (10-20); BUN (Urea Nitrogen) 30 mg/dL (8.4-25.7); Bilirubin, Total 1.4 mg/dL (0.2-1.2); CK (CPK) 1180 U/L (30-200); Calc. Creatinine Clearance 77 mL/min (70-130); Calcium 8.3 mg/dL (7.8-10.44); Carbon Dioxide 26 mmol/L (23-31); Chloride 100 mmol/L (98-107); Estimated GFR-MDRD 73; Globulin 3.4 g/dL (2.4-3.5); Glucose 169 mg/dL (83-110); Potassium 3.6 mmol/L (3.5-5.1); Protein, Total 6.5 g/dL (5.8-8.1); Sodium 137 mmol/L (136-145)
--- NOTE | 2020-04-04 08:55 | PRG ---
DATE OF SERVICE: 04/04/2020 SUBJECTIVE: Mr. Lara remains in the intermediate care unit. He is confused. He is not doing well overall. He is requiring high amounts of oxygen. OBJECTIVE: VITAL SIGNS: Temperature 98.3, pulse 101, and blood pressure 167/100. HEENT: Unremarkable. NECK: No JVD. LUNGS: Inspiratory crackles. CARDIAC: S1 and S2, regular. ABDOMEN: Soft. EXTREMITIES: No edema. LABORATORY DATA: Sodium 137, potassium 3.6, chloride 100, CO2 of 26, BUN 30, creatinine 0.9, and glucose 169. AST 180, ALT 89, and CPK 1180. White blood cell count 11, hematocrit 48.4, and platelet count 148. DIAGNOSTIC DATA: X-ray from yesterday showed diffuse interstitial infiltrates bilaterally. ASSESSMENT: 1. COVID-19 pneumonia with hypoxemia. 2. Advanced age. RECOMMENDATION: 1. We put in for convalescent serum transfusion yesterday. That is pending. 2. Continue high-flow oxygen. 3. Continue IV dexamethasone. 4. Family has elected to make the patient DNR, which I think is blanchard as he is likely due to deteriorate even further, not survive the current illness. Job ID: [id number]
[2020-04-04] MEDS: Apixaban 2.5 MG TAB PO SCH ×2 (09:58→23:07)
[2020-04-04] MEDS: Amlodipine 5 MG TAB PO SCH (09:59)
[2020-04-04] MEDS: Dexamethasone 4 mg/ml Vial SLOW IVP SCH (09:59)
[2020-04-04] MEDS: Cefepime 1 GM in Sodium Chloride 0.9% 100 ML IVPB SCH ×2 (09:59→23:07)
[2020-04-04] MEDS: Aspirin Chewable 81 MG TAB PO SCH (09:59)
[2020-04-04] MEDS: Non-Formulary Item 1 EACH in Sodium Chloride 0.9% 250 ML 230 ML IV SCH (10:00)
--- NOTE | 2020-04-04 12:42 | PDOC.HOSPP ---
- Subjective Encounter Date: 04/04/20 Encounter Time: 10:30 Subjective: awake, says he is hungry has sob and is on high flow O2 - Objective Vital Signs & Weight: Vital Signs (12 hours) Temp Pulse Pulse Ox 04/04/20 09:59 103 H 04/04/20 05:54 98.3 F 04/04/20 02:52 92 L Weight Admit Weight 218 lb 12.8 oz Weight 218 lb 12.8 oz Most Recent Monitor Data Heart Rate from ECG 101 NIBP 167/100 NIBP BP-Mean 122 Respiration from ECG 32 SpO2 84 I&O: 04/03/20 04/04/20 04/05/20 06:59 06:59 06:59 Intake Total 3039 700 Output Total 200 400 Balance 2839 300 Result Diagrams: 04/04/20 03:07 04/04/20 03:07 Additional Labs: Accuchecks 04/04/20 04/03/20 04/03/20 05:36 22:04 17:48 POC Glucose 149 H 190 H 173 H Hospitalist ROS - Medication Medications: Active Medications Generic Name Dose Route Start Last Admin Trade Name Freq PRN Reason Stop Dose Admin Amlodipine Besylate 10 mg 04/03/20 09:00 04/04/20 09:59 Norvasc PO 10 mg DAILY QUAN Administration Apixaban 2.5 mg 04/01/20 21:00 04/04/20 09:58 Eliquis PO 2.5 mg BID QUAN Administration Aspirin 81 mg 04/02/20 09:00 04/04/20 09:59 Aspirin Chewable PO 81 mg DAILY QUAN Administration Dexamethasone 6 mg 04/01/20 09:00 04/04/20 09:59 Decadron SLOW IVP 6 mg DAILY QUAN Administration Cefepime HCl 1 gm/ Sodium 100 mls @ 200 mls/hr 04/01/20 21:00 04/04/20 09:59 Chloride IVPB 100 mls Q12HR QUAN Administration Non-Formulary Medication 1 250 mls @ 250 mls/hr 04/04/20 08:00 04/04/20 10:00 each/ Sodium Chloride IV 04/07/20 08:59 250 mls Q24H QUAN Administration Insulin Human Lispro 0 units 04/01/20 04:00 04/02/20 17:52 Humalog SC 2 unit .MILD SLIDING SCALE PRN Administration Mild Correctional Scale Melatonin 6 mg 04/02/20 22:13 04/02/20 22:29 Melatonin PO 6 mg HSPRN PRN Administration Insomnia Sodium Chloride 10 ml 04/01/20 09:00 04/04/20 09:59 Flush - Normal Saline IVF 10 ml Q12HR QUAN Administration - Exam General Appearance: ill appearing Eye: PERRL, anicteric sclera ENT: no oropharyngeal lesions, dry oral mucosa Neck: supple, no JVD Heart: RRR, no murmur Respiratory: no wheezes, rales, rhonchi, tachypneic Gastrointestinal: soft, non-tender, non-distended, normal bowel sounds Extremities: no cyanosis, no edema Neurological: cranial nerve grossly intact, no focal deficits Hosp A/P (1) Acute respiratory failure with hypoxia Code(s): J96.01 - ACUTE RESPIRATORY FAILURE WITH HYPOXIA Status: Acute (2) Pneumonia due to COVID-19 virus Code(s): U07.1 - COVID-19; J12.89 - OTHER VIRAL PNEUMONIA Status: Acute (3) DM type 2 (diabetes mellitus, type 2) Status: Chronic Qualifiers: 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 insulin use: without fci use (4) ROBBIN (acute kidney injury) Code(s): N17.9 - ACUTE KIDNEY FAILURE, UNSPECIFIED Status: Resolved (5) Rhabdomyolysis Code(s): M62.82 - RHABDOMYOLYSIS Status: Acute Qualifiers: Rhabdomyolysis type: non-traumatic Qualified Code(s): M62.82 - Rhabdomyolysis (6) Atrial fibrillation Code(s): I48.91 - UNSPECIFIED ATRIAL FIBRILLATION Status: Chronic Qualifiers: Atrial fibrillation type: paroxysmal Qualified Code(s): I48.0 - Paroxysmal atrial fibrillation (7) HTN (hypertension) Code(s): I10 - ESSENTIAL (PRIMARY) HYPERTENSION Status: Chronic Qualifiers: Hypertension type: essential hypertension Qualified Code(s): I10 - Essential (primary) hypertension (8) Sepsis Code(s): A41.9 - SEPSIS, UNSPECIFIED ORGANISM Status: Acute Qualifiers: Sepsis type: sepsis due to unspecified organism Sepsis acute organ dysfunction status: with acute organ dysfunction Severe sepsis shock status: without septic shock - Plan d/w son over phone and patient at bedside, both have consented for remdesivir trial (04/01/2020) son is aware of dexamethasone daily and low dose eliquis being started from admission. D/w , son at bedside this am. He is aware of all the labs and current plan and medications given including convalescent plasma. If he gets worse family might transition him to hospice/comfort care. 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
--- NOTE | 2020-04-04 22:17 | PDOC.EVN ---
Event Note - Event Note Event Note: Nurse called, patient is tachypneic, tachycardic, spo2 70s, on high flow NC, has been like this most of the day. patient made DNAR. Updated family, family does not want pressure support, requested us to make comfortable tonight and will be in tomorrow morning to officially make comfort measures. Added morphine prn.
[2020-04-04] MEDS: Morphine 2 MG/ML VIAL SLOW IVP PRN (23:54)
[2020-04-05 04:13] LABS: #Lymphocytes 1.1 thou/uL (1.20-3.40); #Monocytes 0.8 thou/uL (0.11-0.59); #Neutrophils 10.3 thou/uL (1.40-6.50); %Basophils 0.4 % (0.0-1.0); %Eosinophils 0.3 % (0.0-10.0); %Lymphocytes 8.9 % (21.0-51.0); %Monocytes 6.3 % (0.0-10.0); %Neutrophils 84.1 % (42.0-75.0); Hemoglobin 15.6 g/dL (14.0-18.0); Mean Corpuscular HGB CONC 33.6 g/dL (32.0-36.0); Mean Corpuscular Hemoglobin 32.8 pg (27.0-31.0); Mean Corpuscular Volume 97.7 fL (78.0-98.0); Mean Platelet Volume 9.7 fL (7.4-10.4); Platelet Count 180 thou/uL (130-400); RBC Distribution Width 12.6 % (11.5-14.5); Red Blood Cell (RBC) Count 4.77 mill/uL (4.70-6.10); White Blood Cell (WBC) Count 12.2 thou/uL (4.8-10.8)
[2020-04-05 04:16] LABS: ALT (SGPT) 79 U/L (8-55); AST (SGOT) 146 U/L (5-34); Alkaline Phosphatase 76 U/L (40-110); Anion Gap 15 mmol/L (10-20); BUN (Urea Nitrogen) 41 mg/dL (8.4-25.7); Bilirubin, Total 1.4 mg/dL (0.2-1.2); CK (CPK) 788 U/L (30-200); Calc. Creatinine Clearance 67 mL/min (70-130); Calcium 8.4 mg/dL (7.8-10.44); Carbon Dioxide 27 mmol/L (23-31); Chloride 99 mmol/L (98-107); Estimated GFR-MDRD 63; Globulin 3.3 g/dL (2.4-3.5); Glucose 218 mg/dL (83-110); Potassium 3.7 mmol/L (3.5-5.1); Protein, Total 6.3 g/dL (5.8-8.1); Sodium 137 mmol/L (136-145)
[2020-04-05] MEDS: Cefepime 1 GM in Sodium Chloride 0.9% 100 ML IVPB SCH ×2 (08:16→20:13)
[2020-04-05] MEDS: Amlodipine 5 MG TAB PO SCH (08:16)
[2020-04-05] MEDS: Apixaban 2.5 MG TAB PO SCH ×2 (08:17→11:18)
[2020-04-05] MEDS: Dexamethasone 4 mg/ml Vial SLOW IVP SCH (08:17)
[2020-04-05] MEDS: Aspirin Chewable 81 MG TAB PO SCH (08:17)
[2020-04-05] MEDS: Non-Formulary Item 1 EACH in Sodium Chloride 0.9% 250 ML 230 ML IV SCH (09:22)
[2020-04-05] MEDS ORDERED: Apixaban 2.5 MG TAB PO SCH (09:25)
--- NOTE | 2020-04-05 09:42 | PRG ---
DATE OF SERVICE: 04/05/2020 SUBJECTIVE: The patient is about the same. He is on high-flow oxygen with O2 sats in the mid to high 70s. He is eating. He is talking and does not look to be in any distress. OBJECTIVE: VITAL SIGNS: Temperature 99.2, pulse 100, and blood pressure 161/87. HEENT: Unremarkable. NECK: No JVD. LUNGS: Inspiratory crackles. CARDIAC: S1 and S2. Regular. ABDOMEN: Soft. EXTREMITIES: No edema. LABORATORY DATA: White blood cell count 12.2, hematocrit 46.6, and platelet count 180. Sodium 137, potassium 3.7, chloride 99, CO2 of 27, BUN 41, creatinine 1.1, and glucose 218. AST 146 and ALT 79. CPK 788. ASSESSMENT: 1. COVID-19 infection with pneumonia. 2. Elevated LFTs, which are improving. 3. Rhabdomyolysis, which is improving. PLAN: 1. I would recommend increasing his anticoagulation to a therapeutic dose of 5 mg twice daily. 2. I would continue to ride this out with a high-flow oxygen as he does have a chance of getting better. 3. Continue the dexamethasone. Job ID: [id number]
[2020-04-05] MEDS ORDERED: Apixaban 5 MG TAB PO SCH (09:45)
--- NOTE | 2020-04-05 13:30 | PDOC.HOSPP ---
- Subjective Encounter Date: 04/05/20 Subjective: She is seen examined bedside this morning currently saturating 78% however reports that he is feeling comfortable and not in any distress denying chest pain nausea vomiting last night he became more tachypneic tachycardic and when they reached out to the family they made patient DNR/DNI and possible comfort there reported no aggressive measures to be taken patient this morning agreed with the plan - Objective Vital Signs & Weight: Vital Signs (12 hours) Temp Pulse Pulse Ox 04/05/20 08:16 103 H 04/05/20 08:00 99 F 04/05/20 07:39 77 L 04/05/20 03:02 99.2 F Weight Admit Weight 218 lb 12.8 oz Weight 218 lb 12.8 oz Most Recent Monitor Data Heart Rate from ECG 105 NIBP 153/94 NIBP BP-Mean 113 Respiration from ECG 27 SpO2 76 I&O: 04/04/20 04/05/20 04/06/20 06:59 06:59 06:59 Intake Total 700 1350 Output Total 400 500 Balance 300 850 Result Diagrams: 04/05/20 03:25 04/05/20 03:25 Additional Labs: Accuchecks 04/05/20 04/05/20 04/04/20 11:58 04:51 21:18 POC Glucose 225 H 181 H 216 H Hospitalist ROS - Medication Medications: Active Medications Generic Name Dose Route Start Last Admin Trade Name Gianlucaq PRN Reason Stop Dose Admin Amlodipine Besylate 10 mg 04/03/20 09:00 04/05/20 08:16 Norvasc PO 10 mg DAILY QUAN Administration Aspirin 81 mg 04/02/20 09:00 04/05/20 08:17 Aspirin Chewable PO 81 mg DAILY QUAN Administration Dexamethasone 6 mg 04/01/20 09:00 04/05/20 08:17 Decadron SLOW IVP 6 mg DAILY QUAN Administration Cefepime HCl 1 gm/ Sodium 100 mls @ 200 mls/hr 04/01/20 21:00 04/05/20 08:16 Chloride IVPB 100 mls Q12HR QUAN Administration Non-Formulary Medication 1 250 mls @ 250 mls/hr 04/04/20 08:00 04/05/20 09:22 each/ Sodium Chloride IV 04/07/20 08:59 250 mls Q24H QUAN Administration Insulin Human Lispro 0 units 04/01/20 04:00 04/02/20 17:52 Humalog SC 2 unit .MILD SLIDING SCALE PRN Administration Mild Correctional Scale Melatonin 6 mg 04/02/20 22:13 04/02/20 22:29 Melatonin PO 6 mg HSPRN PRN Administration Insomnia Morphine Sulfate 2 mg 04/04/20 22:14 04/04/20 23:54 Morphine Sulfate SLOW IVP 2 mg Q4H PRN Administration Severe Pain (7-10) Sodium Chloride 10 ml 04/01/20 09:00 04/05/20 08:18 Flush - Normal Saline IVF 10 ml Q12HR QUAN Administration - Exam General Appearance: NAD, awake alert, ill appearing ENT: normocephalic atraumatic Neck: supple Heart: RRR Respiratory: rhonchi Psychiatric: normal affect Hosp A/P (1) Acute respiratory failure with hypoxia Code(s): J96.01 - ACUTE RESPIRATORY FAILURE WITH HYPOXIA Status: Acute (2) COVID-19 Code(s): U07.1 - COVID-19 Status: Acute (3) Diabetes Code(s): E11.9 - TYPE 2 DIABETES MELLITUS WITHOUT COMPLICATIONS Status: Acute (4) Pneumonia Code(s): J18.9 - PNEUMONIA, UNSPECIFIED ORGANISM Status: Acute (5) DM type 2 (diabetes mellitus, type 2) Status: Chronic Qualifiers: Diabetes mellitus terminal makeup operator insulin use: without terminal makeup operator use - Plan Patient with high oxygen requirement currently saturating 78% on high flow nasal cannula but appears to be comfortable and reports some improvement in his symptoms He is currently on remesvir trial 04/01 and dexamethasone As well as Eliquis twice daily Family are considering hospice palliative care will discuss more today meanwhile continue with current management Patient is DNR/DNI no wishes for any aggressive treatment such as pressors Patient with poor prognosis we will continue close monitoring Plan discussed with the patient and with the ICU nurse
[2020-04-05 16:24] LABS: Anion Gap 16 mmol/L (10-20); BUN (Urea Nitrogen) 43 mg/dL (8.4-25.7); Calc. Creatinine Clearance 63 mL/min (70-130); Carbon Dioxide 27 mmol/L (23-31); Chloride 98 mmol/L (98-107); Estimated GFR-MDRD 59; Potassium 3.7 mmol/L (3.5-5.1); Sodium 137 mmol/L (136-145)
[2020-04-05 16:25] LABS: Calcium 8.5 mg/dL (7.8-10.44); Glucose 265 mg/dL (83-110)
--- NOTE | 2020-04-05 16:56 | PRG ---
DATE OF SERVICE: 04/05/2020 SUBJECTIVE: Mr. Lara has been transferred to the [facility], quite hypoxemic, but does not appear in distress, which is sort of what they described as happy, hypoxemia. No chest pain. Has been made do not resuscitate without aggressive measures intended. OBJECTIVE: VITAL SIGNS: Afebrile except for one measurement of 99.2. His blood pressure is 140/85, heart rate 96, O2 sats are down to 77% on a high-flow nasal cannula. LUNGS: Diminished breath sounds at bases. Few crackles scattered. HEART: S1 and S2 regular rate. ABDOMEN: Soft, not tender. EXTREMITIES: Moves extremities. LABORATORY DATA: His white cell count is 12,000, hemoglobin 15, platelets 180. Creatinine 1.18, bilirubin 1.14, AST 146, ALT is down to 79. He is on cefepime, dexamethasone, Remdesivir. Microbiology with corynebacterium, likely contaminant of the sample. ASSESSMENT AND DISCUSSION: Atrial fibrillation on Eliquis, type 2 diabetes, hypertension, rhabdomyolysis, COVID infection, requirement for O2 administration, now with severe hypoxemia, has been made do not resuscitate, today is the fourth day of Remdesivir, is on Decadron, transferred to the [facility]. Job ID: [id number]
[2020-04-05 16:58] LABS: Band 15 % (5-11); Hemoglobin 15.6 g/dL (14.0-18.0); Lymphocytes 4 % (21-51); MDiff Complete? YES; Mean Corpuscular HGB CONC 33.1 g/dL (32.0-36.0); Mean Corpuscular Hemoglobin 32.3 pg (27.0-31.0); Mean Corpuscular Volume 97.7 fL (78.0-98.0); Mean Platelet Volume 9.9 fL (7.4-10.4); Monocytes 3 % (0-10); Neutrophil 76 % (42-75); Nucleated RBC 2 % (0); Ovalocytes SLIGHT = 2-5 cells (100X) (0-1/hpf); Platelet Count 213 thou/uL (130-400); Platelet Morphology Comment Appears Adequate; Polychromasia MODERATE = 3-4 cells (100X) (0-2/hpf); RBC Distribution Width 12.5 % (11.5-14.5); Reactive Lymphocytes 2 % (0-10); Red Blood Cell (RBC) Count 4.84 mill/uL (4.70-6.10); Target Cells SLIGHT = 2-5 cells (100X) (0-1/hpf); Tear Drops SLIGHT = 2-5 cells (100X) (0-1/hpf)
[2020-04-05] MEDS: HumaLOG 300 UNITS/3 ML VIAL SC PRN ×2 (17:16→20:41)
[2020-04-05] MEDS: Apixaban 5 MG TAB PO SCH (20:14)
[2020-04-06] MEDS: HumaLOG 300 UNITS/3 ML VIAL SC PRN ×3 (05:12→21:00)
[2020-04-06] MEDS: Aspirin Chewable 81 MG TAB PO SCH (08:43)
[2020-04-06] MEDS: Amlodipine 5 MG TAB PO SCH (08:43)
[2020-04-06] MEDS: Cefepime 1 GM in Sodium Chloride 0.9% 100 ML IVPB SCH ×2 (08:43→20:40)
[2020-04-06] MEDS: Non-Formulary Item 1 EACH in Sodium Chloride 0.9% 250 ML 230 ML IV SCH (08:43)
[2020-04-06] MEDS: Dexamethasone 4 mg/ml Vial SLOW IVP SCH (08:43)
--- NOTE | 2020-04-06 09:24 | PRG ---
DATE OF SERVICE: 04/06/2020 SUBJECTIVE: The patient is about the same, on high-flow oxygen with sats running in the high 70s to low 80s. OBJECTIVE: VITAL SIGNS: His pulse is in the low 100s, blood pressure 140/78. HEENT: Unremarkable. NECK: No JVD. LUNGS: Diffuse crackles. CARDIAC: S1 and S2. Regular. ABDOMEN: Soft. EXTREMITIES: No edema. LABORATORY DATA: No labs were done today. ASSESSMENT: 1. COVID-19 pneumonia. 2. Status post transfusion of convalescent serum. 3. Anticoagulated fully. PLAN: Continue supportive care with high-flow oxygen. Continue dexamethasone. Job ID: [id number]
[2020-04-06] MEDS: Apixaban 5 MG TAB PO SCH ×2 (12:39→20:40)
--- NOTE | 2020-04-06 13:41 | PDOC.HOSPP ---
- Subjective Encounter Date: 04/06/20 Subjective: seen today no signifacnt change from yesterday appears cofrtable wants to ambulate today his sats 82% no chest pain n/v - Objective Vital Signs & Weight: Vital Signs (12 hours) Temp Pulse Pulse Ox 04/06/20 12:00 99.1 F 04/06/20 08:43 103 H 04/06/20 08:00 99 F 04/06/20 07:57 82 L 04/06/20 04:00 98.6 F Weight Admit Weight 218 lb 12.8 oz Weight 218 lb 12.8 oz Most Recent Monitor Data Heart Rate from ECG 115 NIBP 142/105 NIBP BP-Mean 117 Respiration from ECG 30 SpO2 81 I&O: 04/05/20 04/06/20 04/07/20 06:59 06:59 06:59 Intake Total 1350 1860 Output Total 500 400 Balance 850 1460 Result Diagrams: 04/05/20 15:47 04/05/20 15:47 Additional Labs: Accuchecks 04/06/20 04/05/20 04/05/20 05:08 20:25 17:07 POC Glucose 202 H 257 H 299 H Hospitalist ROS - Medication Medications: Active Medications Generic Name Dose Route Start Last Admin Trade Name Freq PRN Reason Stop Dose Admin Amlodipine Besylate 10 mg 04/03/20 09:00 04/06/20 08:43 Norvasc PO 10 mg DAILY QUAN Administration Apixaban 5 mg 04/05/20 21:00 04/06/20 12:39 Eliquis PO 5 mg BID QUAN Administration Aspirin 81 mg 04/02/20 09:00 04/06/20 08:43 Aspirin Chewable PO 81 mg DAILY QUAN Administration Dexamethasone 6 mg 04/01/20 09:00 04/06/20 08:43 Decadron SLOW IVP 6 mg DAILY QUAN Administration Cefepime HCl 1 gm/ Sodium 100 mls @ 200 mls/hr 04/01/20 21:00 04/06/20 08:43 Chloride IVPB 100 mls Q12HR QUAN Administration Non-Formulary Medication 1 250 mls @ 250 mls/hr 04/04/20 08:00 04/06/20 08:43 each/ Sodium Chloride IV 04/07/20 08:59 250 mls Q24H QUAN Administration Insulin Human Lispro 0 units 04/01/20 04:00 04/06/20 05:12 Humalog SC 3 unit .MILD SLIDING SCALE PRN Administration Mild Correctional Scale Melatonin 6 mg 04/02/20 22:13 04/02/20 22:29 Melatonin PO 6 mg HSPRN PRN Administration Insomnia Morphine Sulfate 2 mg 04/04/20 22:14 04/04/20 23:54 Morphine Sulfate SLOW IVP 2 mg Q4H PRN Administration Severe Pain (7-10) Sodium Chloride 10 ml 04/01/20 09:00 04/06/20 12:42 Flush - Normal Saline IVF 10 ml Q12HR QUAN Administration - Exam General Appearance: awake alert Eye: PERRL Neck: supple Respiratory: rhonchi, tachypneic Extremities: no cyanosis Skin: normal turgor Hosp A/P (1) Acute respiratory failure with hypoxia Code(s): J96.01 - ACUTE RESPIRATORY FAILURE WITH HYPOXIA Status: Acute (2) COVID-19 Code(s): U07.1 - COVID-19 Status: Acute (3) Diabetes Code(s): E11.9 - TYPE 2 DIABETES MELLITUS WITHOUT COMPLICATIONS Status: Acute (4) Pneumonia Code(s): J18.9 - PNEUMONIA, UNSPECIFIED ORGANISM Status: Acute (5) DM type 2 (diabetes mellitus, type 2) Status: Chronic Qualifiers: Diabetes mellitus custodial insulin use: without celluloid trimmer use - Plan Patient with high oxygen requirement currently saturating 80% on high flow nasal cannula but appears to be comfortable and reports some improvement in his symptoms He is currently on remesvir trial 04/01 and dexamethasone As well as Eliquis twice daily f/u pulm and ID recs spoke to son yesterday want no aggressive treatment but ok with current management and moniotr for any improvment if not they will considering hospice palliative care Patient is DNR/DNI no wishes for any aggressive treatment such as pressors Patient with poor prognosis we will continue close monitoring Plan discussed with the patient and with the ICU nurse
[2020-04-07] MEDS: Apixaban 5 MG TAB PO SCH ×2 (08:00→21:18)
[2020-04-07] MEDS: Amlodipine 5 MG TAB PO SCH (08:00)
[2020-04-07] MEDS: Aspirin Chewable 81 MG TAB PO SCH (08:00)
[2020-04-07] MEDS: Dexamethasone 4 mg/ml Vial SLOW IVP SCH (08:01)
[2020-04-07] MEDS: Cefepime 1 GM in Sodium Chloride 0.9% 100 ML IVPB SCH ×2 (08:01→21:18)
[2020-04-07] MEDS: Non-Formulary Item 1 EACH in Sodium Chloride 0.9% 250 ML 230 ML IV SCH (08:03)
--- NOTE | 2020-04-07 09:22 | PRG ---
DATE OF SERVICE: 04/07/2020 SUBJECTIVE: The patient is more encephalopathic than he was. OBJECTIVE: VITAL SIGNS: Temperature 99.3, pulse 113, blood pressure 170/80, O2 saturation 85% on high-flow oxygen. HEENT: Unremarkable. NECK: No adenopathy or JVD. LUNGS: Crackles. CARDIAC: S1 and S2, regular. ABDOMEN: Soft. EXTREMITIES: No edema. LABORATORY DATA: No labs were obtained today. ASSESSMENT: COVID-19 pneumonia with hypoxemia. PLAN: 1. Continue anticoagulation. 2. Might consider tapering steroids given development of encephalopathy. Prognosis poor. Job ID: [id number]
[2020-04-07] MEDS: Morphine 2 MG/ML VIAL SLOW IVP PRN ×3 (09:29→21:18)
--- NOTE | 2020-04-07 12:28 | PDOC.HOSPP ---
- Subjective Encounter Date: 04/07/20 Subjective: Patient seen and examined bedside this morning appears more lethargic today and confused nurse reported that he took off the high flow nasal cannula and his oxygenation dropped to the 50s this morning currently following some commands mental status appears worse compared to yesterday - Objective Vital Signs & Weight: Vital Signs (12 hours) Temp Pulse BP Pulse Ox 04/07/20 08:00 115 H 115/80 04/07/20 07:28 85 L 04/07/20 04:08 87 L 04/07/20 04:00 99.3 F Weight Admit Weight 218 lb 12.8 oz Weight 218 lb 12.8 oz Most Recent Monitor Data Heart Rate from ECG 113 NIBP 170/80 NIBP BP-Mean 110 Respiration from ECG 35 SpO2 85 I&O: 04/06/20 04/07/20 04/08/20 06:59 06:59 06:59 Intake Total 1860 510 Output Total 400 Balance 1460 510 Result Diagrams: 04/05/20 15:47 04/05/20 15:47 Additional Labs: Accuchecks 04/07/20 04/07/20 04/06/20 10:44 04:12 20:48 POC Glucose 179 H 161 H 243 H 04/06/20 17:36 POC Glucose 253 H Hospitalist ROS - Medication Medications: Active Medications Generic Name Dose Route Start Last Admin Trade Name Freq PRN Reason Stop Dose Admin Amlodipine Besylate 10 mg 04/03/20 09:00 04/07/20 08:00 Norvasc PO 10 mg DAILY QUAN Administration Apixaban 5 mg 04/05/20 21:00 04/07/20 08:00 Eliquis PO 5 mg BID QUAN Administration Aspirin 81 mg 04/02/20 09:00 04/07/20 08:00 Aspirin Chewable PO 81 mg DAILY QUAN Administration Dexamethasone 6 mg 04/01/20 09:00 04/07/20 08:01 Decadron SLOW IVP 6 mg DAILY QUAN Administration Cefepime HCl 1 gm/ Sodium 100 mls @ 200 mls/hr 04/01/20 21:00 04/07/20 08:01 Chloride IVPB 100 mls Q12HR QUAN Administration Insulin Human Lispro 0 units 04/01/20 04:00 04/06/20 21:00 Humalog SC 3 unit .MILD SLIDING SCALE PRN Administration Mild Correctional Scale Melatonin 6 mg 04/02/20 22:13 04/02/20 22:29 Melatonin PO 6 mg HSPRN PRN Administration Insomnia Morphine Sulfate 2 mg 04/04/20 22:14 04/07/20 09:29 Morphine Sulfate SLOW IVP 2 mg Q4H PRN Administration Severe Pain (7-10) Sodium Chloride 10 ml 04/01/20 09:00 04/07/20 08:01 Flush - Normal Saline IVF 10 ml Q12HR QUAN Administration - Exam General Appearance: ill appearing Respiratory: rhonchi, tachypneic Gastrointestinal: soft, non-tender Hosp A/P (1) Acute respiratory failure with hypoxia Code(s): J96.01 - ACUTE RESPIRATORY FAILURE WITH HYPOXIA Status: Acute (2) COVID-19 Code(s): U07.1 - COVID-19 Status: Acute (3) Diabetes Code(s): E11.9 - TYPE 2 DIABETES MELLITUS WITHOUT COMPLICATIONS Status: Acute (4) Pneumonia Code(s): J18.9 - PNEUMONIA, UNSPECIFIED ORGANISM Status: Acute (5) DM type 2 (diabetes mellitus, type 2) Status: Chronic Qualifiers: Diabetes mellitus 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 exterminator insulin use: without longterm use - Plan Patient today appears more lethargic and confused with some encephalopathy we will continue with supportive care and high flow nasal cannula He is currently on remesvir trial 04/01 and dexamethasone As well as Eliquis twice daily f/u pulm and ID recs Family want no aggressive treatment but ok with current management and moniotr for any improvment if not they will considering hospice palliative care Patient is DNR/DNI no wishes for any aggressive treatment such as pressors Patient with poor prognosis we will continue close monitoring Plan discussed with the patient and with the ICU nurse
[2020-04-07] MEDS: HumaLOG 300 UNITS/3 ML VIAL SC PRN ×2 (17:32→21:25)
[2020-04-08] MEDS: Morphine 2 MG/ML VIAL SLOW IVP PRN ×3 (04:35→18:00)
[2020-04-08] MEDS: Aspirin Chewable 81 MG TAB PO SCH (08:03)
[2020-04-08] MEDS: Amlodipine 5 MG TAB PO SCH (08:03)
[2020-04-08] MEDS: Dexamethasone 4 mg/ml Vial SLOW IVP SCH (08:05)
[2020-04-08] MEDS: Apixaban 5 MG TAB PO SCH ×2 (08:05→20:50)
[2020-04-08] MEDS: Cefepime 1 GM in Sodium Chloride 0.9% 100 ML IVPB SCH ×2 (08:07→20:50)
[2020-04-08] MEDS: HumaLOG 300 UNITS/3 ML VIAL SC PRN ×3 (10:28→21:19)
--- NOTE | 2020-04-08 10:36 | PDOC.HOSPP ---
- Subjective Encounter Date: 04/08/20 non-verbal Subjective: Patient seen and examined at bedside this morning sleeping comfortably on high flow nasal cannula issues having more pain yesterday seemed uncomfortable and patient was given morphine has been sleeping since however his saturation was significant improvement currently 95% on high flow - Objective Vital Signs & Weight: Vital Signs (12 hours) Temp Pulse BP 04/08/20 08:03 122 H 149/114 H 04/08/20 04:00 98.6 F 04/08/20 00:05 99.0 F Weight Admit Weight 218 lb 12.8 oz Weight 218 lb 12.8 oz Most Recent Monitor Data Heart Rate from ECG 109 NIBP 152/116 NIBP BP-Mean 128 Respiration from ECG 35 SpO2 95 I&O: 04/07/20 04/08/20 04/09/20 06:59 06:59 06:59 Intake Total 510 650 Balance 510 650 Result Diagrams: 04/05/20 15:47 04/05/20 15:47 Additional Labs: Accuchecks 04/08/20 04/07/20 04/07/20 04:40 21:29 17:32 POC Glucose 174 H 264 H 266 H 04/07/20 10:44 POC Glucose 179 H Hospitalist ROS - Medication Medications: Active Medications Generic Name Dose Route Start Last Admin Trade Name Freq PRN Reason Stop Dose Admin Amlodipine Besylate 10 mg 04/03/20 09:00 04/08/20 08:03 Norvasc PO 10 mg DAILY QUAN Administration Apixaban 5 mg 04/05/20 21:00 04/08/20 08:05 Eliquis PO 5 mg BID QUAN Administration Aspirin 81 mg 04/02/20 09:00 04/08/20 08:03 Aspirin Chewable PO 81 mg DAILY QUAN Administration Dexamethasone 6 mg 04/01/20 09:00 04/08/20 08:05 Decadron SLOW IVP 6 mg DAILY QUAN Administration Guaifenesin/Dextromethorphan 15 ml 04/01/20 03:52 04/07/20 16:59 Diabetic Tussin Dm PO 15 ml Q4H PRN Administration Cough Cefepime HCl 1 gm/ Sodium 100 mls @ 200 mls/hr 04/01/20 21:00 04/08/20 08:07 Chloride IVPB 100 mls Q12HR QUAN Administration Insulin Human Lispro 0 units 04/01/20 04:00 04/08/20 10:28 Humalog SC 3 unit .MILD SLIDING SCALE PRN Administration Mild Correctional Scale Melatonin 6 mg 04/02/20 22:13 04/02/20 22:29 Melatonin PO 6 mg HSPRN PRN Administration Insomnia Morphine Sulfate 2 mg 04/04/20 22:14 04/08/20 08:08 Morphine Sulfate SLOW IVP 2 mg Q4H PRN Administration Severe Pain (7-10) Sodium Chloride 10 ml 04/01/20 09:00 04/08/20 08:05 Flush - Normal Saline IVF 10 ml Q12HR QUAN Administration - Exam General Appearance: ill appearing Neck: supple Heart: RRR Respiratory: rhonchi Extremities: no cyanosis Psychiatric: somnolent, lethargic Hosp A/P (1) Acute respiratory failure with hypoxia Code(s): J96.01 - ACUTE RESPIRATORY FAILURE WITH HYPOXIA Status: Acute (2) COVID-19 Code(s): U07.1 - COVID-19 Status: Acute (3) Diabetes Code(s): E11.9 - TYPE 2 DIABETES MELLITUS WITHOUT COMPLICATIONS Status: Acute (4) Pneumonia Code(s): J18.9 - PNEUMONIA, UNSPECIFIED ORGANISM Status: Acute (5) DM type 2 (diabetes mellitus, type 2) Status: Chronic Qualifiers: Diabetes mellitus 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 intake due to mental status will start on NS 100 cc an hour and monitor urine output Family want no aggressive treatment but ok with current management and moniotr for any improvment if not they will considering hospice palliative care Patient is DNR/DNI no wishes for any aggressive treatment such as pressors Patient with poor prognosis we will continue close monitoring Plan discussed with the patient and with the ICU nurse
[2020-04-08] MEDS: Sodium Chloride 0.9% 1,000 ML IV SCH ×2 (11:45→20:50)
--- NOTE | 2020-04-08 14:25 | PRG ---
DATE OF SERVICE: 04/08/2020 SUBJECTIVE: The patient is about the same. Still encephalopathic, but O2 saturations are getting somewhat better. OBJECTIVE: VITAL SIGNS: His temperature 99.3, pulse 116, blood pressure 137/78, O2 saturation is 93% on 90% high-flow nasal cannula. HEENT: Unremarkable. NECK: No JVD. LUNGS: Poor air movement. CARDIAC: S1 and S2. Regular. ABDOMEN: Soft. EXTREMITIES: He has punctate papular rash throughout. ASSESSMENT: COVID-19 pneumonia with hypoxemia. PLAN: Continue supportive care with anticoagulation, antibiotics, IV Decadron, and high-flow nasal cannula. His prognosis is poor. Job ID: [id number]
[2020-04-09] MEDS: Morphine 2 MG/ML VIAL SLOW IVP PRN ×3 (03:51→20:35)
[2020-04-09 03:59] LABS: Band 6 % (5-11); Hemoglobin 14.4 g/dL (14.0-18.0); Hypochromia SLIGHT = 6-15 cells (100X) (0-5/hpf); Lymphocytes 5 % (21-51); MDiff Complete? YES; Mean Corpuscular HGB CONC 34.2 g/dL (32.0-36.0); Mean Corpuscular Hemoglobin 33.3 pg (27.0-31.0); Mean Corpuscular Volume 97.5 fL (78.0-98.0); Mean Platelet Volume 11.8 fL (7.4-10.4); Monocytes 6 % (0-10); Neutrophil 83 % (42-75); Nucleated RBC 1 % (0); Platelet Count 87 thou/uL (130-400); Platelet Morphology Comment Appears Decreased; RBC Distribution Width 14.7 % (11.5-14.5); Red Blood Cell (RBC) Count 4.33 mill/uL (4.70-6.10); White Blood Cell (WBC) Count 24.1 thou/uL (4.8-10.8)
[2020-04-09 04:02] LABS: Anion Gap 16 mmol/L (10-20); BUN (Urea Nitrogen) 69 mg/dL (8.4-25.7); Calc. Creatinine Clearance 65 mL/min (70-130); Calcium 8.4 mg/dL (7.8-10.44); Carbon Dioxide 24 mmol/L (23-31); Chloride 109 mmol/L (98-107); Estimated GFR-MDRD 60; Glucose 202 mg/dL (83-110); Magnesium 2.2 mg/dL (1.6-2.6); Sodium 145 mmol/L (136-145)
[2020-04-09] MEDS: HumaLOG 300 UNITS/3 ML VIAL SC PRN (05:55)
--- NOTE | 2020-04-09 07:39 | PDOC.HOSPP ---
- Subjective Encounter Date: 04/09/20 (f/u covid pneumonia) Encounter Time: 07:37 Subjective: Pt now on HD9 for COVID pneumonia c/b encephalopathy. No overnight events noted. Per chart review, he has received remdesivir and is currently on cefepime and decadron. IVF started yesterday for poor PO intake. Rn notes he takes some liquids and soft textures by mouth. - Objective Vital Signs & Weight: Vital Signs (12 hours) Temp Pulse Ox 04/09/20 03:50 99.7 F H 04/09/20 00:05 99.0 F 04/08/20 21:00 99.2 F 04/08/20 20:00 95 Weight Admit Weight 218 lb 12.8 oz Weight 218 lb 12.8 oz Most Recent Monitor Data Heart Rate from ECG 117 NIBP 159/98 NIBP BP-Mean 118 Respiration from ECG 21 SpO2 94 I&O: 04/08/20 04/09/20 04/10/20 06:59 06:59 06:59 Intake Total 650 2585 Balance 650 2585 Result Diagrams: 04/09/20 03:27 04/09/20 03:27 Additional Labs: Accuchecks 04/09/20 04/08/20 04/08/20 05:42 21:00 16:24 POC Glucose 227 H 242 H 240 H 04/08/20 10:33 POC Glucose 211 H EKG Reviewed by me: Yes (sinus tachy with pvc's) Hospitalist ROS - Medication Medications: Active Medications Generic Name Dose Route Start Last Admin Trade Name Freq PRN Reason Stop Dose Admin Amlodipine Besylate 10 mg 04/03/20 09:00 04/08/20 08:03 Norvasc PO 10 mg DAILY QUAN Administration Apixaban 5 mg 04/05/20 21:00 04/08/20 20:50 Eliquis PO 5 mg BID QUAN Administration Aspirin 81 mg 04/02/20 09:00 04/08/20 08:03 Aspirin Chewable PO 81 mg DAILY QUAN Administration Dexamethasone 6 mg 04/01/20 09:00 04/08/20 08:05 Decadron SLOW IVP 6 mg DAILY QUAN Administration Guaifenesin/Dextromethorphan 15 ml 04/01/20 03:52 04/07/20 16:59 Diabetic Tussin Dm PO 15 ml Q4H PRN Administration Cough Cefepime HCl 1 gm/ Sodium 100 mls @ 200 mls/hr 04/01/20 21:00 04/08/20 20:50 Chloride IVPB 100 mls Q12HR QUAN Administration Sodium Chloride 1,000 mls @ 100 mls/hr 04/08/20 10:45 04/08/20 20:50 Normal Saline 0.9% IV 1,000 mls .Q10H QUAN Administration Insulin Human Lispro 0 units 04/01/20 04:00 04/09/20 05:55 Humalog SC 3 unit .MILD SLIDING SCALE PRN Administration Mild Correctional Scale Melatonin 6 mg 04/02/20 22:13 04/02/20 22:29 Melatonin PO 6 mg HSPRN PRN Administration Insomnia Morphine Sulfate 2 mg 04/04/20 22:14 04/09/20 03:51 Morphine Sulfate SLOW IVP 2 mg Q4H PRN Administration Severe Pain (7-10) Sodium Chloride 10 ml 04/01/20 09:00 04/08/20 20:50 Flush - Normal Saline IVF 10 ml Q12HR QUAN Administration - Exam General Appearance: NAD General - other findings: moaning occasionally Heart: RRR, no murmur Respiratory - other findings: decreased breath sounds throughout the right side , no audible wheezing Gastrointestinal: soft, non-tender, non-distended, normal bowel sounds Extremities: no cyanosis, no clubbing, no edema Skin - other findings: crusting areas along legs and on chest, hyperpigmentation of distal LE Neurological - other findings: Unable to assess - not responding to questions Musculoskeletal - other findings: unable to assess Psychiatric - other findings: unable to assess Hosp A/P (1) Acute respiratory failure with hypoxia Code(s): J96.01 - ACUTE RESPIRATORY FAILURE WITH HYPOXIA Status: Acute (2) Encephalopathy Code(s): G93.40 - ENCEPHALOPATHY, UNSPECIFIED Status: Acute (3) COVID-19 Code(s): U07.1 - COVID-19 Status: Acute (4) Diabetes Code(s): E11.9 - TYPE 2 DIABETES MELLITUS WITHOUT COMPLICATIONS Status: Chronic Qualifiers: Diabetes mellitus type: type 2 (5) Pneumonia due to COVID-19 virus Code(s): U07.1 - COVID-19; J12.89 - OTHER VIRAL PNEUMONIA Status: Acute (6) HTN (hypertension) Code(s): I10 - ESSENTIAL (PRIMARY) HYPERTENSION Status: Chronic Qualifiers: Hypertension type: essential hypertension Qualified Code(s): I10 - Essential (primary) hypertension (7) Thrombocytopenia Code(s): D69.6 - THROMBOCYTOPENIA, UNSPECIFIED Status: Acute - Plan COVID Pneumonia, Acute resp failure - Pt has been on cefepime since admission - will d/c this - continue steroids - appreciate Pulm recs and management Encephalopathy secondary to above - continue assisting - feeding, verbal stimulation Thrombocytopenia - monitor - will d/c the aspirin as the patient is on eliquis for concern of hypercoagulable state associated with COVID DM - not optimally controlled - add lantus 10 units and monitor - continue ssi Poor PO intake - glucerna and continue assisting with feeds - lower IVF rate to avoid volume overload Pall Care consult for family support as overall poor prognosis DVT prophy - eliquis GI prophy - will add due to steroids code status DNAR Will review w/family as they are available later today Addendum - 13:56 - informed by speech therapy that pt is not safe to swallow, and NPO recommended. Meds reviewed and oral meds d/c. Pt on full anticoagulation with Eliquis - will change to Lovenox starting tonight - reviewed timing and dosing with Crystal/Pharmacist. Updated pt's son Mehrdad by phone. Review of Dr. Cano's note - no aggressive treatment desired by the family and code status DNR/DNI.
[2020-04-09] MEDS ORDERED: Pantoprazole 40 MG GRANULES PACKET PO SCH (09:00)
[2020-04-09] MEDS: Sodium Chloride 0.9% 1,000 ML IV SCH ×3 (09:38→20:36)
[2020-04-09] MEDS: Dexamethasone 4 mg/ml Vial SLOW IVP SCH (09:41)
[2020-04-09] MEDS: Insulin Glargine 10 UNITS in Pre-Filled Syringe 1 EACH SC SCH (09:43)
[2020-04-09] MEDS: Apixaban 5 MG TAB PO SCH (09:44)
[2020-04-09] MEDS: Amlodipine 5 MG TAB PO SCH (09:44)
--- NOTE | 2020-04-09 12:21 | PRG ---
DATE OF SERVICE: 04/09/2020 SUBJECTIVE: The patient is actually improving with his O2 saturation, but his mental status is very compromised. OBJECTIVE: VITAL SIGNS: Temperature 99.6, pulse 117, blood pressure 160/89, and O2 saturation 95%. HEENT: Unremarkable. NECK: No JVD. LUNGS: Crackles. CARDIAC: S1, S2. Regular. ABDOMEN: Soft. EXTREMITIES: No edema. LABORATORY DATA: White blood cell count 24.1, hematocrit 42.3, and platelet count 87. Sodium 145, potassium 4, chloride 109, CO2 of 24, BUN 69, creatinine 1.1, glucose 202. ASSESSMENT: 1. COVID-19 pneumonia. 2. Metabolic encephalopathy from the COVID pneumonia. PLAN: 1. Continue anticoagulation. 2. Continue Decadron. 3. Try to wean O2 as tolerated. Prognosis remains extremely poor. Job ID: [id number]
[2020-04-09] MEDS ORDERED: hydrALAZINE 20 MG/ML VIAL SLOW IVP PRN (13:54)
[2020-04-09] MEDS: Enoxaparin Sodium 100 MG/ML SYRINGE SC SCH (20:27)
[2020-04-09 21:13] VITALS: BP 142/96
[2020-04-10 04:17] LABS: Anion Gap 14 mmol/L (10-20); BUN (Urea Nitrogen) 72 mg/dL (8.4-25.7); Calc. Creatinine Clearance 70 mL/min (70-130); Calcium 8.1 mg/dL (7.8-10.44); Carbon Dioxide 25 mmol/L (23-31); Chloride 114 mmol/L (98-107); Estimated GFR-MDRD 66; Glucose 207 mg/dL (83-110); Potassium 4.1 mmol/L (3.5-5.1); Sodium 149 mmol/L (136-145)
[2020-04-10 04:18] LABS: Band 28 % (5-11); Hemoglobin 13.3 g/dL (14.0-18.0); Lymphocytes 1 % (21-51); MDiff Complete? YES; Mean Corpuscular HGB CONC 33.1 g/dL (32.0-36.0); Mean Corpuscular Hemoglobin 32.5 pg (27.0-31.0); Mean Corpuscular Volume 98.1 fL (78.0-98.0); Mean Platelet Volume 12.1 fL (7.4-10.4); Monocytes 1 % (0-10); Neutrophil 70 % (42-75); Platelet Count 77 thou/uL (130-400); Platelet Morphology Comment Appears Decreased; RBC Distribution Width 17.2 % (11.5-14.5); Red Blood Cell (RBC) Count 4.09 mill/uL (4.70-6.10); White Blood Cell (WBC) Count 21.6 thou/uL (4.8-10.8)
[2020-04-10] MEDS: Morphine 2 MG/ML VIAL SLOW IVP PRN ×3 (05:19→23:46)
[2020-04-10] MEDS: Insulin Glargine 10 UNITS in Pre-Filled Syringe 1 EACH SC SCH (08:54)
[2020-04-10] MEDS: Dexamethasone 4 mg/ml Vial SLOW IVP SCH (08:57)
[2020-04-10] MEDS: Pantoprazole 40 MG VIAL IVP SCH (08:57)
[2020-04-10] MEDS: Enoxaparin Sodium 100 MG/ML SYRINGE SC SCH ×2 (09:00→21:00)
--- NOTE | 2020-04-10 09:41 | PRG ---
DATE OF SERVICE: 04/10/2020 SUBJECTIVE: The patient is doing reasonably well in terms of oxygenation, but continues to be grossly encephalopathic. OBJECTIVE: VITAL SIGNS: Temperature 98.6, pulse 114, blood pressure 142/104, O2 saturation in the 90s. HEENT: Unremarkable. NECK: No JVD. LUNGS: Coarse breath sounds. CARDIAC: S1 and S2. Regular. ABDOMEN: Soft. EXTREMITIES: Trace edema. LABORATORY DATA: White blood cell count 21.6, hematocrit 40, and platelet count 77. Sodium 149, potassium 4.1, chloride 114, CO2 of 22, BUN 72, creatinine 1.0, glucose 207. ASSESSMENT: 1. COVID-19 pneumonia. 2. Encephalopathy from COVID pneumonia. PLAN: He is currently being anticoagulated with Lovenox instead of Eliquis. I would recommend that the primary care team consider starting enteral tube feeds by Dobhoff tube placement as the patient has not received nutrition otherwise. Job ID: [id number]
[2020-04-10] MEDS: Sodium Chloride 0.9% 1,000 ML IV SCH ×2 (11:25→23:32)
--- NOTE | 2020-04-10 15:49 | PDOC.HOSPP ---
- Subjective Encounter Date: 04/10/20 non-verbal - Objective Vital Signs & Weight: Vital Signs (12 hours) Temp Pulse Ox 04/10/20 12:00 99.6 F 92 L 04/10/20 08:10 99.4 F 04/10/20 08:00 94 L 04/10/20 04:00 98.6 F Weight Admit Weight 218 lb 12.8 oz Weight 218 lb 12.8 oz Most Recent Monitor Data Heart Rate from ECG 113 NIBP 150/87 NIBP BP-Mean 108 Respiration from ECG 20 SpO2 90 I&O: 04/09/20 04/10/20 04/11/20 06:59 06:59 06:59 Intake Total 2585 1655 Output Total 1250 Balance 2585 405 Result Diagrams: 04/10/20 03:15 04/10/20 03:15 Additional Labs: Accuchecks 04/10/20 04/10/20 04/09/20 10:29 05:30 20:35 POC Glucose 216 H 213 H 237 H 04/09/20 04/09/20 16:07 10:28 POC Glucose 218 H 170 H Hospitalist ROS - Medication Medications: Active Medications Generic Name Dose Route Start Last Admin Trade Name Freq PRN Reason Stop Dose Admin Dexamethasone 6 mg 04/01/20 09:00 04/10/20 08:57 Decadron SLOW IVP 6 mg DAILY QUAN Administration Enoxaparin Sodium 100 mg 04/09/20 21:00 04/10/20 09:00 Lovenox SC Not Given 0900,2100 [facility] Insulin Glargine 10 units/ 0.1 mls @ 0 mls/hr 04/09/20 09:00 04/10/20 08:54 Miscellaneous Medication SC Not Given QAM [facility] Sodium Chloride 1,000 mls @ 75 mls/hr 04/09/20 07:44 04/10/20 11:25 Normal Saline 0.9% IV 1,000 mls .[id number] QUAN Administration Insulin Human Lispro 0 units 04/01/20 04:00 04/09/20 05:55 Humalog SC 3 unit .MILD SLIDING SCALE PRN Administration Mild Correctional Scale Morphine Sulfate 2 mg 04/04/20 22:14 04/10/20 15:39 Morphine Sulfate SLOW IVP 2 mg Q4H PRN Administration Severe Pain (7-10) Pantoprazole Sodium 40 mg 04/10/20 09:00 04/10/20 08:57 Protonix IVP 40 mg DAILY QUAN Administration Sodium Chloride 10 ml 04/01/20 09:00 04/10/20 09:00 Flush - Normal Saline IVF 10 ml Q12HR QUAN Administration - Exam General - other findings: Confused Neck: supple, no JVD Heart: RRR Respiratory: tachypneic Neurological: cranial nerve grossly intact, no new deficit Hosp A/P - Plan Hosp A/P (1) Acute respiratory failure with hypoxia Code(s): J96.01 - ACUTE RESPIRATORY FAILURE WITH HYPOXIA Status: Acute (2) Encephalopathy Code(s): G93.40 - ENCEPHALOPATHY, UNSPECIFIED Status: Acute (3) COVID-19 Code(s): U07.1 - COVID-19 Status: Acute (4) Diabetes Code(s): E11.9 - TYPE 2 DIABETES MELLITUS WITHOUT COMPLICATIONS Status: Chronic Qualifiers: Diabetes mellitus type: type 2 (5) Pneumonia due to COVID-19 virus Code(s): U07.1 - COVID-19; J12.89 - OTHER VIRAL PNEUMONIA Status: Acute (6) HTN (hypertension) Code(s): I10 - ESSENTIAL (PRIMARY) HYPERTENSION Status: Chronic Qualifiers: Hypertension type: essential hypertension Qualified Code(s): I10 - Essential (primary) hypertension (7) Thrombocytopenia Code(s): D69.6 - THROMBOCYTOPENIA, UNSPECIFIED Status: Acute - Plan COVID Pneumonia, Acute resp failure - Pt has been on cefepime since admission - will d/c this - continue steroids - appreciate Pulm recs and management Encephalopathy secondary to above - continue assisting - feeding, verbal stimulation Thrombocytopenia - monitor - will d/c the aspirin as the patient is on eliquis for concern of hypercoagulable state associated with COVID DM - not optimally controlled - add lantus 10 units and monitor - continue ssi Poor PO intake - glucerna and continue assisting with feeds - lower IVF rate to avoid volume overload Pall Care consult for family support as overall poor prognosis DVT prophy - eliquis GI prophy - will add due to steroids code status DNAR Will review w/family as they are available later today Addendum - 13:56 - informed by speech therapy that pt is not safe to swallow, and NPO recommended. Meds reviewed and oral meds d/c. Pt on full anticoagulation with Eliquis - will change to Lovenox starting tonight - reviewed timing and dosing with Crystal/Pharmacist. Updated pt's son Mehrdad by phone. Review of Dr. Cano's note - no aggressive treatment desired by the family and code status DNR/DNI. 04/10: Had a discussion with the patient's son about his condition and poor prognosis. He expressed understanding of his current situation. Requested neurology consultation and EEG to have more insight about his mental status. If his mental status does not improve, he is agreeable to hospice care.
[2020-04-10] MEDS: HumaLOG 300 UNITS/3 ML VIAL SC PRN (16:41)
--- NOTE | 2020-04-10 18:39 | CON ---
NEUROLOGY CONSULTATION DATE OF CONSULTATION: 04/10/2020 REASON FOR CONSULTATION: Altered mental status/prognosis. HISTORY OF PRESENT ILLNESS: Mr. Ezequiel Lara is an 84-year-old male with medical history significant for atrial fibrillation, hypertension, hyperlipidemia, diabetes, consulted for altered mental status. The patient was admitted to the hospital on April 01, 2020, because of confusion. Per records, he was extremely altered when the son went to the house to check on him, so he decided to bring him to the hospital for further management. In the emergency room, chest x-ray was done, which showed pulmonary infiltrates and he was tested positive for COVID. The patient has been treated for COVID pneumonia and other issues since his admission to the hospital ; however, on 04/07, he became unresponsive and not following commands. His mental status has not been improved over the last 2 days and Neurology was consulted for further input. REVIEW OF SYSTEMS: Unobtainable due to the patient's mental status. PAST MEDICAL HISTORY: Atrial fibrillation, hypertension, hyperlipidemia, diabetes. PAST SURGICAL HISTORY: Not significant. FAMILY HISTORY: No significant family history. ALLERGIES: No known drug allergies - Objective Vital Signs & Weight: Vital Signs (12 hours) Temp Pulse Ox 04/10/20 12:00 99.6 F 92 L 04/10/20 08:10 99.4 F 04/10/20 08:00 94 L 04/10/20 04:00 98.6 F Weight Admit Weight 218 lb 12.8 oz Weight 218 lb 12.8 oz Most Recent Monitor Data Heart Rate from ECG 113 NIBP 150/87 NIBP BP-Mean 108 Respiration from ECG 20 SpO2 90 I&O: 04/09/20 04/10/20 04/11/20 06:59 06:59 06:59 Intake Total 2585 1655 Output Total 1250 Balance 2585 405 Accuchecks 04/10/20 04/10/20 04/09/20 10:29 05:30 20:35 POC Glucose 216 H 213 H 237 H 04/09/20 04/09/20 16:07 10:28 POC Glucose 218 H 170 H Active Medications Generic Name Dose Route Start Last Admin Trade Name Freq PRN Reason Stop Dose Admin Dexamethasone 6 mg 04/01/20 09:00 04/10/20 08:57 Decadron SLOW IVP 6 mg DAILY QUAN Administration Enoxaparin Sodium 100 mg 04/09/20 21:00 04/10/20 09:00 Lovenox SC Not Given 0900,2100 [facility] Insulin Glargine 10 units/ 0.1 mls @ 0 mls/hr 04/09/20 09:00 04/10/20 08:54 Miscellaneous Medication SC Not Given QAM QUAN Sodium Chloride 1,000 mls @ 75 mls/hr 04/09/20 07:44 04/10/20 11:25 Normal Saline 0.9% IV 1,000 mls .[id number] QUAN Administration Insulin Human Lispro 0 units 04/01/20 04:00 04/09/20 05:55 Humalog SC 3 unit .MILD SLIDING SCALE PRN Administration Mild Correctional Scale Morphine Sulfate 2 mg 04/04/20 22:14 04/10/20 15:39 Morphine Sulfate SLOW IVP 2 mg Q4H PRN Administration Severe Pain (7-10) Pantoprazole Sodium 40 mg 04/10/20 09:00 04/10/20 08:57 Protonix IVP 40 mg DAILY QUAN Administration Sodium Chloride 10 ml 04/01/20 09:00 04/10/20 09:00 Flush - Normal Saline IVF 10 ml Q12HR QUAN Administration PHYSICAL EXAMINATION: GENERAL APPEARANCE: Ill-appearing. NECK: Supple. HEART: No murmur, gallop, or rub. RESPIRATORY: Tachypneic, decreased breath sounds bilaterally. EXTREMITIES: No clubbing, cyanosis, or edema. NEUROLOGIC: Mental status: The patient is extremely somnolent. He does not follow commands. He does not open his eyes to verbal or noxious stimuli, resist to opening eyes and does not follow commands or maintain eye contact. Cranial nerves: Pupils are 4 mm, round, and sluggishly responsive to light. No gaze preference. No roving eye movement seen. Face is symmetric. Tongue is midline. Corneals positive. Gag positive. Motor: Muscle tone and bulk are normal. Minimal spontaneous movement of both upper and lower extremities were seen bilaterally, upper extremities more than lower extremities. No focal deficits appreciated on limited exam. Sensory: Withdraws to nailbed pressure bilaterally, upper extremities more than lower extremities. Cerebellar: Could not be assessed secondary to the patient's mental status. Gait: Deferred due to the patient's safety reasons and due to the patient's mental status. DATA REVIEWED: I reviewed the chest x-ray, which was consistent with pneumonia. I also reviewed the labs. ASSESSMENT AND PLAN: Mr. Ezequiel Lara is an 84-year-old male with multiple comorbidities and currently with COVID pneumonia, has been unresponsive since 04/07/2020. No documented seizures or focal deficits apparent on exam. At this point, he does have the brainstem reflexes and the long tract signs so no obvious signs of anoxic brain injury on exam. Encephalopathy most likely due to infectious etiology. .Recommend MRI of the brain to rule out acute intracranial pathology once the patient is negative for COVID and also EEG once negative for covid. The prognosis remains guarded still since no neurological recovery for the last few days. Thank you for the consult. Job ID: [id number] [facility] CENTERChitra
--- NOTE | 2020-04-11 09:26 | PRG ---
DATE OF SERVICE: 04/11/2020 SUBJECTIVE: This gentleman remains encephalopathic in the IMC on high-flow oxygen. He has been weaned down to 45%. OBJECTIVE: VITAL SIGNS: His O2 saturation is staying about 95%. His temperature is 99.4, pulse 115, and blood pressure 145/84. GENERAL: I find him obtunded. HEENT: Shows dry ocular, nasal, and oropharyngeal secretions. NECK: No JVD. LUNGS: Inspiratory crackles. CARDIAC: S1 and S2 regular. ABDOMEN: Soft. EXTREMITIES: Edematous. ASSESSMENT: 1. COVID-19 pneumonia. 2. Encephalopathy secondary to COVID-19. PLAN: While his oxygenation is improving, his mental status is terrible. 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 Again, I would recommend some type of enteral feeding. Job ID: [id number]
[2020-04-11] MEDS: Insulin Glargine 10 UNITS in Pre-Filled Syringe 1 EACH SC SCH (09:37)
[2020-04-11] MEDS: Pantoprazole 40 MG VIAL IVP SCH (09:38)
[2020-04-11] MEDS: Dexamethasone 4 mg/ml Vial SLOW IVP SCH (09:39)
[2020-04-11] MEDS: Sodium Chloride 0.9% 1,000 ML IV SCH (09:44)
[2020-04-11] MEDS: HumaLOG 300 UNITS/3 ML VIAL SC PRN ×3 (11:43→21:49)
[2020-04-11] MEDS: Enoxaparin Sodium 100 MG/ML SYRINGE SC SCH ×2 (12:41→21:48)
[2020-04-11 15:07] LABS: Hemoglobin 13.1 g/dL (14.0-18.0); Mean Corpuscular HGB CONC 33.2 g/dL (32.0-36.0); Mean Corpuscular Hemoglobin 33.1 pg (27.0-31.0); Mean Corpuscular Volume 99.5 fL (78.0-98.0); Mean Platelet Volume 9.1 fL (7.4-10.4); Platelet Count 58 thou/uL (130-400); RBC Distribution Width 18.2 % (11.5-14.5); Red Blood Cell (RBC) Count 3.96 mill/uL (4.70-6.10)
[2020-04-11 15:15] LABS: Anion Gap 14 mmol/L (10-20); BUN (Urea Nitrogen) 60 mg/dL (8.4-25.7); Calc. Creatinine Clearance 86 mL/min (70-130); Calcium 8.3 mg/dL (7.8-10.44); Carbon Dioxide 22 mmol/L (23-31); Chloride 119 mmol/L (98-107); Estimated GFR-MDRD 83; Glucose 197 mg/dL (83-110); Potassium 4.4 mmol/L (3.5-5.1); Sodium 151 mmol/L (136-145)
[2020-04-11 15:25] LABS: Anisocytosis SLIGHT = 6-15 cells (100X) (0-5/hpf); Band 3 % (5-11); Eosinophils 1 % (0-10); Lymphocytes 1 % (21-51); MDiff Complete? YES; Monocytes 2 % (0-10); Myelocyte 2 % (0-0); Neutrophil 91 % (42-75); Nucleated RBC 4 % (0); Ovalocytes SLIGHT = 2-5 cells (100X) (0-1/hpf); Platelet Morphology Comment Appears Decreased; Poikilocytosis SLIGHT = 6-15 cells (100X) (0-5/hpf); Polychromasia SLIGHT = 2-3 cells (100X) (0-2/hpf); Spherocytes SLIGHT = 1-5 cells (100X) (None Seen); Tear Drops SLIGHT = 2-5 cells (100X) (0-1/hpf); White Blood Cell (WBC) Count 24.3 thou/uL (4.8-10.8)
--- NOTE | 2020-04-11 15:37 | PDOC.HOSPP ---
- Subjective Encounter Date: 04/11/20 Subjective: Status unchanged. - Objective Vital Signs & Weight: Vital Signs (12 hours) Temp Pulse Ox 04/11/20 12:00 98.9 F 92 L 04/11/20 08:00 97.9 F 04/11/20 07:38 95 04/11/20 04:00 99.4 F Weight Admit Weight 218 lb 12.8 oz Weight 218 lb 12.8 oz Most Recent Monitor Data Heart Rate from ECG 113 NIBP 170/106 NIBP BP-Mean 127 Respiration from ECG 33 SpO2 95 I&O: 04/10/20 04/11/20 04/12/20 06:59 06:59 06:59 Intake Total 1655 1800 Output Total 1250 750 Balance 405 1050 Result Diagrams: 04/11/20 14:46 04/11/20 14:46 Additional Labs: Accuchecks 04/11/20 04/10/20 04/10/20 05:58 21:08 16:27 POC Glucose 182 H 229 H 244 H Hospitalist ROS - Medication Medications: Active Medications Generic Name Dose Route Start Last Admin Trade Name Freq PRN Reason Stop Dose Admin Dexamethasone 6 mg 04/01/20 09:00 04/11/20 09:39 Decadron SLOW IVP 6 mg DAILY QUAN Administration Enoxaparin Sodium 100 mg 04/09/20 21:00 04/11/20 12:41 Lovenox SC Not Given 0900,2100 [facility] Insulin Glargine 10 units/ 0.1 mls @ 0 mls/hr 04/09/20 09:00 04/11/20 09:37 Miscellaneous Medication SC Not Given QAM [facility] Sodium Chloride 1,000 mls @ 75 mls/hr 04/09/20 07:44 04/11/20 09:44 Normal Saline 0.9% IV 1,000 mls .[id number] QUAN Administration Insulin Human Lispro 0 units 04/01/20 04:00 04/11/20 11:43 Humalog SC 3 unit .MILD SLIDING SCALE PRN Administration Mild Correctional Scale Morphine Sulfate 2 mg 04/04/20 22:14 04/10/20 23:46 Morphine Sulfate SLOW IVP 2 mg Q4H PRN Administration Severe Pain (7-10) Pantoprazole Sodium 40 mg 04/10/20 09:00 04/11/20 09:38 Protonix IVP 40 mg DAILY QUAN Administration Sodium Chloride 10 ml 04/01/20 09:00 04/11/20 09:40 Flush - Normal Saline IVF 10 ml Q12HR QUAN Administration Sodium Chloride 10 ml 04/01/20 06:09 04/10/20 23:50 Flush - Normal Saline IVF 10 ml PRN PRN Administration Saline Flush - Exam General - other findings: The patient remains confused and nonresponsive Neck: supple Heart: RRR Respiratory: normal chest expansion, no tachypnea Hosp A/P - Plan Hosp A/P (1) Acute respiratory failure with hypoxia Code(s): J96.01 - ACUTE RESPIRATORY FAILURE WITH HYPOXIA Status: Acute (2) Encephalopathy Code(s): G93.40 - ENCEPHALOPATHY, UNSPECIFIED Status: Acute (3) COVID-19 Code(s): U07.1 - COVID-19 Status: Acute (4) Diabetes Code(s): E11.9 - TYPE 2 DIABETES MELLITUS WITHOUT COMPLICATIONS Status: Chronic Qualifiers: Diabetes mellitus type: type 2 (5) Pneumonia due to COVID-19 virus Code(s): U07.1 - COVID-19; J12.89 - OTHER VIRAL PNEUMONIA Status: Acute (6) HTN (hypertension) Code(s): I10 - ESSENTIAL (PRIMARY) HYPERTENSION Status: Chronic Qualifiers: Hypertension type: essential hypertension Qualified Code(s): I10 - Essential (primary) hypertension (7) Thrombocytopenia Code(s): D69.6 - THROMBOCYTOPENIA, UNSPECIFIED Status: Acute - Plan COVID Pneumonia, Acute resp failure - Pt has been on cefepime since admission - will d/c this - continue steroids - appreciate Pulm recs and management Encephalopathy secondary to above - continue assisting - feeding, verbal stimulation Thrombocytopenia - monitor - will d/c the aspirin as the patient is on eliquis for concern of hypercoagulable state associated with COVID DM - not optimally controlled - add lantus 10 units and monitor - continue ssi Poor PO intake - glucerna and continue assisting with feeds - lower IVF rate to avoid volume overload [facility] Care consult for family support as overall poor prognosis DVT prophy - eliquis GI prophy - will add due to steroids code status DNAR Will review w/family as they are available later today Addendum - 13:56 - informed by speech therapy that pt is not safe to swallow, and NPO recommended. Meds reviewed and oral meds d/c. Pt on full anticoagulation with Eliquis - will change to Lovenox starting tonight - reviewed timing and dosing with Crystal/Pharmacist. Updated pt's son Mehrdad by phone. Review of Dr. Cano's note - no aggressive treatment desired by the family and code status DNR/DNI. 04/10: Had a discussion with the patient's son about his condition and poor prognosis. He expressed understanding of his current situation. Requested neurology consultation and EEG to have more insight about his mental status. If his mental status does not improve, he is agreeable to hospice care. 04/11: The patient's family decided to pursue hospice care. Repeat COVID-19 test
[2020-04-11] MEDS: Morphine 2 MG/ML VIAL SLOW IVP PRN (18:23)
--- NOTE | 2020-04-11 19:03 | PRG ---
DATE OF SERVICE: 04/11/2020 SUBJECTIVE: Mr. Lara is awake, still confused. Neurology has evaluated the patient, lack of responsiveness. It was felt to be secondary to encephalopathy, and an MRI was recommended eventually. OBJECTIVE: VITAL SIGNS: His temperature is normal, BP 170/106, pulse is 113, respiratory rate is anywhere from 27 to 33. He is saturating at 96% to 95%, and delivery method is nasal cannula at this point in time. LUNGS: Symmetric air entry. HEART: S1 and S2. Regular rate. ABDOMEN: Soft. NEUROLOGIC: He is very somnolent. He does not follow commands. Very minimal movement in extremities. LABORATORY DATA: White cell count 24,000, hemoglobin 13, platelets 58,000, 91% neutrophils. D-dimer is greater than 20. Creatinine 0.87. The last imaging study was a chest x-ray on April 03, and he is currently on Decadron IVP. Given insulin, pantoprazole, and enoxaparin 100 mg b.i.d. ASSESSMENT AND DISCUSSION: Atrial fibrillation, on Eliquis; type 2 diabetes; hypertension; rhabdo; COVID infection. Some improvement in hypoxemia, and a decrease in O2 supplementation requirement has been observed, but deterioration in mental status is the main issue at this moment, and COVID has been associated with encephalitis/encephalopathy, although there is some controversy about it. The other concern would be with a stroke. Unfortunately, due to his status, he cannot have an MRI done to confirm possibility of a CVA. Job ID: [id number]
[2020-04-12] MEDS: Morphine 2 MG/ML VIAL SLOW IVP PRN (04:06)
[2020-04-12] MEDS: Sodium Chloride 0.9% 1,000 ML IV SCH (06:00)
[2020-04-12] MEDS ORDERED: Sodium Chloride 0.45% 1,000 ML IV SCH (06:30)
[2020-04-12] MEDS: Pantoprazole 40 MG VIAL IVP SCH (08:33)
[2020-04-12] MEDS: Enoxaparin Sodium 100 MG/ML SYRINGE SC SCH (08:34)
[2020-04-12] MEDS: Dexamethasone 4 mg/ml Vial SLOW IVP SCH (08:34)
[2020-04-12] MEDS: Insulin Glargine 10 UNITS in Pre-Filled Syringe 1 EACH SC SCH (08:34)
--- NOTE | 2020-04-12 08:51 | PRG ---
DATE OF SERVICE: 04/12/2020 SUBJECTIVE: Mr. Lara is remaining in the IMCU on high-flow nasal cannula. He is encephalopathic and will not respond to commands. OBJECTIVE: VITAL SIGNS: Temperature 98.8, pulse 109, blood pressure 158/81, and O2 sat 93%. 24-hour intake 1800, output 1100. HEENT: Eyes will open. Oropharynx dry. NECK: No JVD. CHEST: Clear. CARDIAC: S1 and S2. Regular. ABDOMEN: Soft. EXTREMITIES: No edema. LABORATORY DATA: Sodium 151, potassium 4.4, chloride 119, CO2 of 22, BUN 60, creatinine 0.8, and glucose 197. ASSESSMENT: 1. COVID-19 pneumonia. 2. Persistent encephalopathy. 3. Improved hypoxemia. PLAN: Main issue now is his mental status, which is horrible. I am going to get a CT of his head to see if he has had a stroke. He remains on anticoagulation. He also remains on steroids. I spoke with his son yesterday. Job ID: [id number]
[2020-04-12 12:08] VITALS: TEMP 98.9
[2020-04-12 13:47] LABS: SARS-CoV-2 MS2 Positive; SARS-CoV-2 N Gene Positive; SARS-CoV-2 S Gene Positive; SARS-CoV-2 orf1ab Positive
--- NOTE | 2020-04-12 15:05 | PDOC.HOSPP ---
- Subjective Encounter Date: 04/12/20 Subjective: Status unchanged. - Objective Vital Signs & Weight: Vital Signs (12 hours) Temp Pulse Ox 04/12/20 12:00 98.9 F 04/12/20 10:11 95 04/12/20 08:00 98.4 F 98 04/12/20 04:00 98.8 F Weight Admit Weight 218 lb 12.8 oz Weight 218 lb 12.8 oz Most Recent Monitor Data Heart Rate from ECG 125 NIBP 169/99 NIBP BP-Mean 122 Respiration from ECG 21 SpO2 97 I&O: 04/11/20 04/12/20 04/13/20 06:59 06:59 06:59 Intake Total 1800 1800 Output Total 750 1100 Balance 1050 700 Result Diagrams: 04/11/20 14:46 04/11/20 14:46 Additional Labs: Accuchecks 04/12/20 04/11/20 04/11/20 06:35 21:10 17:29 POC Glucose 164 H 201 H 235 H 04/11/20 11:01 POC Glucose 220 H Hospitalist ROS - Medication Medications: Active Medications Generic Name Dose Route Start Last Admin Trade Name Freq PRN Reason Stop Dose Admin Dexamethasone 6 mg 04/01/20 09:00 04/12/20 08:34 Decadron SLOW IVP 6 mg DAILY QUAN Administration Enoxaparin Sodium 100 mg 04/09/20 21:00 04/12/20 08:34 Lovenox SC Not Given 0900,2100 QUAN Insulin Glargine 10 units/ 0.1 mls @ 0 mls/hr 04/09/20 09:00 04/12/20 08:34 Miscellaneous Medication SC 0.1 mls QAM QUAN Administration Sodium Chloride 1,000 mls @ 75 mls/hr 04/12/20 06:30 04/12/20 06:53 1/2 Normal Saline IV 1,000 mls .[id number] QUAN Administration Insulin Human Lispro 0 units 04/01/20 04:00 04/11/20 21:49 Humalog SC 2 unit .MILD SLIDING SCALE PRN Administration Mild Correctional Scale Morphine Sulfate 2 mg 04/04/20 22:14 04/12/20 04:06 Morphine Sulfate SLOW IVP 2 mg Q4H PRN Administration Severe Pain (7-10) Pantoprazole Sodium 40 mg 04/10/20 09:00 04/12/20 08:33 Protonix IVP 40 mg DAILY QUAN Administration Sodium Chloride 10 ml 04/01/20 09:00 04/12/20 08:35 Flush - Normal Saline IVF 10 ml Q12HR QUAN Administration Sodium Chloride 10 ml 04/01/20 06:09 04/12/20 08:34 Flush - Normal Saline IVF 10 ml PRN PRN Administration Saline Flush - Exam ENT: normocephalic atraumatic Heart: RRR Respiratory: normal chest expansion, no tachypnea Hosp A/P - Plan Hosp A/P (1) Acute respiratory failure with hypoxia Code(s): J96.01 - ACUTE RESPIRATORY FAILURE WITH HYPOXIA Status: Acute (2) Encephalopathy Code(s): G93.40 - ENCEPHALOPATHY, UNSPECIFIED Status: Acute (3) COVID-19 Code(s): U07.1 - COVID-19 Status: Acute (4) Diabetes Code(s): E11.9 - TYPE 2 DIABETES MELLITUS WITHOUT COMPLICATIONS Status: Chronic Qualifiers: Diabetes mellitus type: type 2 (5) Pneumonia due to COVID-19 virus Code(s): U07.1 - COVID-19; J12.89 - OTHER VIRAL PNEUMONIA Status: Acute (6) HTN (hypertension) Code(s): I10 - ESSENTIAL (PRIMARY) HYPERTENSION Status: Chronic Qualifiers: Hypertension type: essential hypertension Qualified Code(s): I10 - Essential (primary) hypertension (7) Thrombocytopenia Code(s): D69.6 - THROMBOCYTOPENIA, UNSPECIFIED Status: Acute - Plan COVID Pneumonia, Acute resp failure - Pt has been on cefepime since admission - will d/c this - continue steroids - appreciate Pulm recs and management Encephalopathy secondary to above - continue assisting - feeding, verbal stimulation Thrombocytopenia - monitor - will d/c the aspirin as the patient is on eliquis for concern of hypercoagulable state associated with COVID DM - not optimally controlled - add lantus 10 units and monitor - continue ssi Poor PO intake - glucerna and continue assisting with feeds - lower IVF rate to avoid volume overload [facility] Care consult for family support as overall poor prognosis DVT prophy - eliquis GI prophy - will add due to steroids code status DNAR Will review w/family as they are available later today Addendum - 13:56 - informed by speech therapy that pt is not safe to swallow, and NPO recommended. Meds reviewed and oral meds d/c. Pt on full anticoagulation with Eliquis - will change to Lovenox starting tonight - reviewed timing and dosing with Crystal/Pharmacist. Updated pt's son Mehrdad by phone. Review of Dr. Cano's note - no aggressive treatment desired by the family and code status DNR/DNI. 04/10: Had a discussion with the patient's son about his condition and poor prognosis. He expressed understanding of his current situation. Requested neurology consultation and EEG to have more insight about his mental status. If his mental status does not improve, he is agreeable to hospice care. 04/11: The patient's family decided to pursue hospice care. Repeat COVID-19 test 04/12: The patient remains on high flow nasal cannula. Pending evaluation by hospice service.
== END 2020-04-12 15:50 | disposition hospice, inpatient (51) | DRG 871 ==
LOC: ERS 02:11 → ERHOLD 03:04 → 2SW 05:27 → IMCU/EMU 04-03 10:27
PROVIDERS: ADMIT Internal Medicine; ATTEND Internal Medicine
PROC: 8E0ZXY6 Isolation (ICD-10-PCS; 2020-04-01)
PROC: 30233L1 Transfusion of Nonautologous Fresh Plasma into Peripheral Vein, Percutaneous Approach (ICD-10-PCS; principal; 2020-04-04)
PROC: 30233K1 Transfusion of Nonautologous Frozen Plasma into Peripheral Vein, Percutaneous Approach (ICD-10-PCS; 2020-04-04)
DX: A41.89 Other specified sepsis (principal); U07.1 COVID-19; J96.01 Acute respiratory failure with hypoxia; J12.89 Other viral pneumonia; G93.41 Metabolic encephalopathy; N17.9 Acute kidney failure, unspecified; M62.82 Rhabdomyolysis; E87.2 Acidosis; Z66 Do not resuscitate; Z51.5 Encounter for palliative care; R65.20 Severe sepsis without septic shock; E11.9 Type 2 diabetes mellitus without complications; I10 Essential (primary) hypertension; D69.6 Thrombocytopenia, unspecified; E78.00 Pure hypercholesterolemia, unspecified; E78.5 Hyperlipidemia, unspecified; I48.91 Unspecified atrial fibrillation; Z96.642 Presence of left artificial hip joint; E86.9 Volume depletion, unspecified; E86.0 Dehydration; R74.0 Nonspecific elevation of levels of transaminase and lactic acid dehydrogenase [LDH]; E87.6 Hypokalemia; Z87.820 Personal history of traumatic brain injury; Z79.82 Long term (current) use of aspirin; Z79.01 Long term (current) use of anticoagulants; Z79.899 Other long term (current) drug therapy; Z79.84 Long term (current) use of oral hypoglycemic drugs; Z79.4 Long term (current) use of insulin; Z78.1 Physical restraint status
CPT/HCPCS: 36415; 36416; 36430; 36600; 71045; 71260; 80048; 80053; 81001; 82140; 82550; 82553; 82570; 82728; 82805; 83605; 83735; 83880; 84145; 84156; 84300; 84484; 84540; 85025; 85379; 86140; 86850; 86900; 86901; 87040; 87635; 93005; 96361; 96365; 96366; C9113; J0456; J0692; J0696; J1100; J1650; J1815; J1940; J2270; J3370; J3490; U0003

== ENCOUNTER 2020-04-12 16:02 | Inpatient (IN) | payer OTHER ==
[2020-04-12] MEDS ORDERED: Ondansetron ODT 4 MG TAB PO PRN (16:28)
[2020-04-12] MEDS ORDERED: Ondansetron PF 4 MG/2 ML Vial IVP PRN (16:28)
[2020-04-12] MEDS ORDERED: Haloperidol Lactate 5 MG/ML VIAL SLOW IVP PRN (16:28)
[2020-04-12] MEDS ORDERED: Scopolamine 1.5 mg/72 hour Patch TOP PRN (16:28)
[2020-04-12] MEDS ORDERED: Lorazepam 2 MG/ML VIAL SLOW IVP PRN ×2 (16:30)
[2020-04-12] MEDS ORDERED: Bisacodyl 10 MG SUPP PR PRN (16:31)
[2020-04-12] MEDS ORDERED: Morphine 2 MG/ML VIAL SLOW IVP PRN (16:31)
[2020-04-13 00:16] VITALS: BP 112/77; TEMP 97.7
--- NOTE | 2020-04-14 08:19 | PQF ---
CLINICAL DOCUMENTATION CLARIFICATION FORM: Dear : Lino Nieves Date / Time: 04/14/20816 Please exercise your independent, professional judgment in responding to the clarification form. Clinical indicators are provided on the bottom of this form for your review Please check appropriate box(es): [ ] Acute Respiratory Failure with Hypoxia [ ] ARDS (Acute Respiratory Distress Syndrome) [ ] Hypoxia [ ] Other diagnosis [ ] Unable to determine In addition, please specify: Present on Admission (POA): [ ] Yes [ ] No [ ] Unable to determine Physician Signature: Date/Time: For continuity of documentation, please document condition throughout progress notes and discharge summary. Thank You. To be completed by CDI/Coding staff for physician review: Present Clinical Indicators - Signs / Symptoms / Labs Results and Location in Medical Record [X] Temp 99.1, Pulse 116, Resp 24, BP 141/76 Vital signs 04/12 [X] O2 saturation: 94% Vital signs 04/12 [X] Tachypneic, decreased breath sound b/l Scanned H&P Present Risk Factors Results and Location in Medical Record [X] 81 year-old Male Scanned H&P [X] HTN Scanned H&P [X] DM Scanned H&P [X] Covid Pneumonia Scanned H&P [X] Severe Sepsis Scanned H&P Present Treatments Results and Location in Medical Record [X] High Flow NC Respiratory Panel 04/12 [X] O2 saturation monitoring Vital signs 04/12 CDS/Tab Card Press Operator Signature: Jeannette Calderon Phone #: ext [phone] Date/Time: 04/14/20816 Acute Respiratory Failure: ABG pH < 7.35 or > 7.45; Decreased oxygen saturation (<90% room air or < 95% on oxygen); PCO2 > 50 mm Hg; PO2 < 60 mm Hg; Labored or rapid respirations ARDS: Dx Criteria [[place] ARDS]: Respiratory symptoms within one week of a known clinical insult (e.g. shock, infection, surgery, trauma) Bilateral opacities in CXR/Chest CT not due to CHF or fluid This is a permanent part of the Medical Record MTDD
== END 2020-04-13 00:35 | disposition expired | DRG 951 ==
LOC: IMCU/EMU 16:02 → T4-B 18:39
PROVIDERS: ADMIT Specialist; ATTEND Specialist
DX: Z51.5 Encounter for palliative care (principal); U07.1 COVID-19; J12.89 Other viral pneumonia; A41.89 Other specified sepsis; R65.20 Severe sepsis without septic shock; N17.9 Acute kidney failure, unspecified; I48.20 Chronic atrial fibrillation, unspecified; Z66 Do not resuscitate; E78.5 Hyperlipidemia, unspecified; I10 Essential (primary) hypertension; E11.9 Type 2 diabetes mellitus without complications
CPT/HCPCS: J2060; J2270